=== PATIENT | male | born 1960 | race Caucasian/White ===

== ENCOUNTER 2016-05-21 11:34 | Emergency (ER) | payer OTHER ==
[~2016-05-21] VITALS: Ht 162.6 cm; Wt 63.5 kg
[~2016-05-21 11:34] MED LIST: BACT800T5 PO; DILA100C PO; PHEN100 PO
[2016-05-21 11:36] VITALS: BP 101/61; PULSE 76; RESP 15; TEMP 98.2; O2SAT 95
[2016-05-21 12:34] VITALS: O2SAT 95
[2016-05-21 12:50] LABS: AUTOMATED NEUTROPHIL # 2.9 TH/MM3 (1.8-7.7); BASOPHIL # 0.1 TH/MM3 (0-0.2); BASOPHIL % 1.3 % (0.0-2.0); EOSINOPHIL # 0.1 TH/MM3 (0-0.4); EOSINOPHIL % 1.6 % (0.0-4.0); HEMATOCRIT 38.3 % (39.0-51.0); HEMO FLAGS DIFF FINAL; LYMPH % 35.5 % (9.0-44.0); LYMPHOCYTE # 1.9 TH/MM3 (1.0-4.8); MEAN CELL VOLUME 95.3 FL (80.0-100.0); MEAN CORPUSCULAR HEMOGLOBIN 32.3 PG (27.0-34.0); MEAN CORPUSCULAR HGB CONC 33.9 % (32.0-36.0); MONO % 9.3 % (0.0-8.0); NEUT % 52.3 % (16.0-70.0); PLATELET COUNT 129 TH/MM3 (150-450); RED BLOOD COUNT 4.01 MIL/MM3 (4.50-5.90); RED CELL DISTRIBUTION WIDTH 14.8 % (11.6-17.2); WHITE BLOOD COUNT 5.5 TH/MM3 (4.0-11.0)
--- NOTE | 2016-05-21 12:51 | PD ---
HPI Chief Complaint: Head Injury Time Seen by Provider: 12:12 Travel History International Travel<30 days: No Contact w/Intl Traveler<30days: No Traveled to known affect area: No History of Present Illness HPI 55-year-old male complains of headache, neck pain, left hand pain, bilateral knee pain and body ache. Patient states that he fell down steps last night and hit the head. Patient is not sure of loss of consciousness. Patient states that he has subcutaneous headache all over the head. Patient denies any visual change. Patient complaining of neck pain. Patient denies any chest pain or shortness of breath. Patient denies abdominal pain. Patient states the had persistent nausea since last night. Patient denies any focal weakness or numbness of extremity. Patient states that he has pain all over the body but most on the left hand, bilateral knees. Patient has history of EtOH abuse. Patient drinks beers daily. Patient states that he drinks informed 64 packs daily. Patient states that he had 2 beers today. Patient states that he has extremity shakes today. Patient has history of DVT in the past. Patient also has history of diabetes and has not been taking diabetic medications. Patient denies any other illicit drug abuse. PFSH Past Medical History Arthritis: Yes Anxiety: Yes Depression: Yes Heart Rhythm Problems: No Cancer: No Cardiac Catheterization: Yes Cardiovascular Problems: Yes High Cholesterol: Yes Chemotherapy: No Congestive Heart Failure: No COPD: Yes Cerebrovascular Accident: Yes Coronary Artery Disease: Yes Diabetes: Yes Patient Takes Glucophage: No Diminished Hearing: No Endocrine: No Gastrointestinal Disorders: Yes (ulcerative colitis) Genitourinary: No Hypertension: Yes Immune Disorder: No Implanted Vascular Access Dvce: Yes Reproductive: No Respiratory: Yes Immunizations Current: No Myocardial Infarction: Yes (JULY 2014) Seizures: Yes Past Surgical History Body Medical Devices: PINS IN HAND, PIN AND PLATES IN HIP PER PATIENT Cardiac Surgery: Yes (2 stents) Coronary Artery Bypass Graft: No Coronary Stent: Yes Other Surgery: Yes (L HIP SURGERY) Social History Alcohol Use: Yes (4-6packs beer a day) Tobacco Use: Yes Substance Use: No Allergies-Medications (Allergen,Severity, Reaction): Coded Allergies: *MDRO Multi-Drug Resistant Organism (Verified Adverse Reaction, Unknown, ) MRSA leg wound 04/2015 MRSA PCR (nares) negative - 10/15/15 & 10/19/15 Cleared per Infection Control Morphine (Verified Adverse Reaction, Unknown, GI UPSET, 05/21/16) Reported Meds & Prescriptions Reported Meds & Active Scripts Active No Active Prescriptions or Reported Medications Review of Systems General / Constitutional: No: Fever Eyes: No: Visual changes HENT: Positive: Headaches, Neck Pain Cardiovascular: No: Chest Pain or Discomfort Respiratory: No: Shortness of Breath Gastrointestinal: No: Abdominal Pain Genitourinary: No: Dysuria Musculoskeletal: Positive: Pain Skin: No Rash Neurologic: No: Weakness Psychiatric: No: Depression Endocrine: No: Polydipsia Hematologic/Lymphatic: No: Easy Bruising Physical Exam Narrative GENERAL: Well-nourished, well-developed patient. SKIN: Warm and dry. HEAD: Normocephalic. Minor abrasion on the right temporal parietal area of the scalp. No active bleeding. EYES: No scleral icterus. No injection or drainage. Pupils 3 mm equal reactive. NECK: Supple, trachea midline. No JVD or lymphadenopathy. Mild tenderness on palpation paraspinal area of cervical spine. No midline tenderness. CARDIOVASCULAR: Regular rate and rhythm without murmurs, gallops, or rubs. RESPIRATORY: Breath sounds equal bilaterally. No accessory muscle use. GASTROINTESTINAL: Abdomen soft, non-tender, nondistended. MUSCULOSKELETAL: No cyanosis, or edema. Mild diffuse tenderness over the left hand, the fingers and also prepatellar area of both knees. Full range of motion all joints. BACK: Nontender without obvious deformity. No CVA tenderness. Neurologic exam: Patient is awake and alert oriented 3. No obvious focal neurological deficit. Data Data Last Documented VS Vital Signs Date Time Temp Pulse Resp B/P Pulse Ox O2 Delivery O2 Flow Rate FiO2 05/21/16 12:34 95 Room Air 05/21/16 11:36 98.2 76 15 101/61 Orders Complete Blood Count With Diff (05/21/16 12:18) Comprehensive Metabolic Panel (05/21/16 12:18) Prothrombin Time / Inr (Pt) (05/21/16 12:18) Act Partial Throm Time (Ptt) (05/21/16 12:18) Lipase (05/21/16 12:18) Alcohol (Ethanol) (05/21/16 12:18) Chest, Single Ap (05/21/16 12:18) Pelvis, Ap Only (Routine) (05/21/16 12:18) Iv Access Insert/Monitor (05/21/16 12:18) Ecg Monitoring (05/21/16 12:18) Oximetry (05/21/16 12:18) Ct Brain W/O Iv Contrast(Rout) (05/21/16 12:18) Ct Cerv Spine W/O Contrast (05/21/16 12:18) Hand, Complete ([id number]) (05/21/16 12:18) Knee, Ltd (1 Or 2vws) (05/21/16 12:18) Knee, Ltd (1 Or 2vws) (05/21/16 12:18) Labs Laboratory Tests Test 05/21/16 12:25 White Blood Count 5.5 TH/MM3 Red Blood Count 4.01 MIL/MM3 Hemoglobin 13.0 GM/DL Hematocrit 38.3 % Mean Corpuscular Volume 95.3 FL Mean Corpuscular Hemoglobin 32.3 PG Mean Corpuscular Hemoglobin 33.9 % Concent Red Cell Distribution Width 14.8 % Platelet Count 129 TH/MM3 Mean Platelet Volume 7.8 FL Neutrophils (%) (Auto) 52.3 % Lymphocytes (%) (Auto) 35.5 % Monocytes (%) (Auto) 9.3 % Eosinophils (%) (Auto) 1.6 % Basophils (%) (Auto) 1.3 % Neutrophils # (Auto) 2.9 TH/MM3 Lymphocytes # (Auto) 1.9 TH/MM3 Monocytes # (Auto) 0.5 TH/MM3 Eosinophils # (Auto) 0.1 TH/MM3 Basophils # (Auto) 0.1 TH/MM3 CBC Comment DIFF FINAL Differential Comment Prothrombin Time 10.7 SEC Prothromb Time International 1.0 RATIO Ratio Activated Partial 26.0 SEC Thromboplast Time Sodium Level 140 MEQ/L Potassium Level 3.9 MEQ/L Chloride Level 104 MEQ/L Carbon Dioxide Level 26.7 MEQ/L Anion Gap 9 MEQ/L Blood Urea Nitrogen 8 MG/DL Creatinine 0.85 MG/DL Estimat Glomerular Filtration 94 ML/MIN Rate Random Glucose 87 MG/DL Calcium Level 8.2 MG/DL Total Bilirubin 0.4 MG/DL Aspartate Amino Transf 96 U/L (AST/SGOT) Alanine Aminotransferase 105 U/L (ALT/SGPT) Alkaline Phosphatase 157 U/L Total Protein 7.8 GM/DL Albumin 3.9 GM/DL Lipase 452 U/L Ethyl Alcohol Level 298 MG/DL MDM Medical Decision Making Medical Screen Exam Complete: Yes Emergency Medical Condition: Yes Interpretation(s) [address] scan of the brain, cervical spine and extremity x-ray showed no acute bony injury. CBC within normal limit. Platelet 129. Calcium 8.2. AST 96. ALT 105. Alkaline phosphatase 157. Lipase 452. Alcohol 298. Differential Diagnosis Differential diagnosis including contusion, concussion, intracranial hemorrhage , neck injury,extremity contusion versus fracture. Narrative Course 55-year-old male with headache, neck pain, left hand pain, bilateral knee pain, status post without steps last night. History of EtOH abuse. Diagnosis Primary Impression: Closed head injury Qualified Code: S09.90XA - Closed head injury, initial encounter Additional Impressions: Multiple contusions Alcohol intoxication Patient Instructions: General Instructions Additional Instructions: Advil for pain. Head trauma instructions given. Follow up with [facility]. Med/Other Pt SpecificInfo: Prescription(s) given Scripts No Active Prescriptions or Reported Meds Disposition: 01 DISCHARGE HOME Condition: Stable Mayco Bravo MD May 21, 2016 12:51
[2016-05-21 12:59] LABS: PROTHROMBIN TIME - PATIENT 10.7 SEC (9.8-11.6)
[2016-05-21 13:06] LABS: ANION GAP 9 MEQ/L (5-15); AST (GOT) 96 U/L (15-37); BICARBONATE 26.7 MEQ/L (21.0-32.0); BLOOD UREA NITROGEN 8 MG/DL (7-18); CHLORIDE 104 MEQ/L (98-107); GLOMERULAR FILTRATION RATE 94 ML/MIN (>89); POTASSIUM 3.9 MEQ/L (3.5-5.1); SODIUM (NA) 140 MEQ/L (136-145)
--- NOTE | 2016-05-21 13:08 | RADRPT ---
EXAM DATE/TIME: 05/21/2016 12:44 [facility] COMPARISON: CHEST SINGLE AP, January 26, 2016, 20:00. INDICATIONS : Patient fell today and hit head on floor. Trauma to head. MEDICAL HISTORY : None. SURGICAL HISTORY : None. ENCOUNTER: Initial ACUITY: 1 day PAIN SCORE: 10/10 LOCATION: chest FINDINGS: A single view of the chest demonstrates the lungs to be symmetrically aerated without evidence of mas s, infiltrate or effusion. The cardiomediastinal contours are unremarkable. Osseous structures are intact. CONCLUSION: Normal examination. Saúl Love MD on May 21, 2016 at 13:07 Board Certified Radiologist. This report was verified electronically.
--- NOTE | 2016-05-21 13:09 | RADRPT ---
EXAM DATE/TIME: 05/21/2016 12:58 [facility] COMPARISON: CT BRAIN W/O CONTRAST, January 26, 2016, 20:58. INDICATIONS : Trauma; fell down stairs last night, headache. RADIATION DOSE: 43.29 CTDIvol (mGy) MEDICAL HISTORY : Stroke. Seizures. Hypertension. SURGICAL HISTORY : None. ENCOUNTER: Initial ACUITY: 1 day PAIN SCALE: 9/10 LOCATION: cranial TECHNIQUE: Multiple contiguous axial images were obtained of the head. Using automated exposure control and adj ustment of the mA and/or kV according to patient size, radiation dose was kept as low as reasonably a chievable to obtain optimal diagnostic quality images. FINDINGS: CEREBRUM: The ventricles are normal for age. No evidence of midline shift, mass lesion, hemorrhage or acute in farction. No extra-axial fluid collections are seen. POSTERIOR FOSSA: The cerebellum and brainstem are intact. The 4th ventricle is midline. The cerebellopontine angle i s unremarkable. EXTRACRANIAL: The visualized portion of the orbits is intact. SKULL: The calvaria is intact. No evidence of skull fracture. CONCLUSION: Normal examination. Saúl Love MD on May 21, 2016 at 13:08 Board Certified Radiologist. This report was verified electronically.
--- NOTE | 2016-05-21 13:11 | RADRPT ---
EXAM DATE/TIME: 05/21/2016 12:49 [facility] COMPARISON: No previous studies available for comparison. INDICATIONS : Patient fell today and hit head on floor. Trauma to head. MEDICAL HISTORY : None. SURGICAL HISTORY : None. ENCOUNTER: Initial ACUITY: 1 day PAIN SCORE: 10/10 LOCATION: pelvis FINDINGS: A single frontal view of the pelvis demonstrates no evidence of fracture. The bony pelvic ring is in tact. Bony mineralization is normal. The soft tissues are intact. CONCLUSION: Unremarkable examination of the pelvis. Saúl Love MD on May 21, 2016 at 13:09 Board Certified Radiologist. This report was verified electronically.
--- NOTE | 2016-05-21 13:19 | RADRPT ---
EXAM DATE/TIME: 05/21/2016 12:51 [facility] COMPARISON: No previous studies available for comparison. INDICATIONS : Patient fell today and hit head on floor. Trauma to head. MEDICAL HISTORY : None. SURGICAL HISTORY : None. ENCOUNTER: Initial ACUITY: 1 day PAIN SCORE: 10/10 LOCATION: Left Knee FINDINGS: Two view examination of the left knee demonstrates no evidence of fracture or dislocation. Bony mine ralization is normal. The suprapatellar soft tissues have a normal configuration. CONCLUSION: Unremarkable limited examination of the left knee. Saúl Love MD on May 21, 2016 at 13:18 Board Certified Radiologist. This report was verified electronically.
--- NOTE | 2016-05-21 13:19 | RADRPT ---
EXAM DATE/TIME: 05/21/2016 12:52 [facility] COMPARISON: No previous studies available for comparison. INDICATIONS : Patient fell today and hit head on floor. Trauma to head. MEDICAL HISTORY : None. SURGICAL HISTORY : None. ENCOUNTER: Initial ACUITY: 1 day PAIN SCORE: 10/10 LOCATION: Right Knee FINDINGS: Two view examination of the right knee demonstrates no evidence of fracture or dislocation. Bony min eralization is normal. The suprapatellar soft tissues have a normal configuration. CONCLUSION: Unremarkable limited examination of the right knee. Saúl Love MD on May 21, 2016 at 13:18 Board Certified Radiologist. This report was verified electronically.
[2016-05-21 13:22] LABS: ALKALINE PHOSPHATASE 157 U/L (45-117); ALT (GPT) 105 U/L (12-78); TOTAL BILIRUBIN ADULT 0.4 MG/DL (0.2-1.0)
--- NOTE | 2016-05-21 13:27 | RADRPT ---
EXAM DATE/TIME: 05/21/2016 12:58 [facility] COMPARISON: No previous studies available for comparison. INDICATIONS : Trauma; fell down stairs last night. RADIATION DOSE: 21.30 CTDIvol (mGy) MEDICAL HISTORY : Stroke. Seizures. Hypertension. SURGICAL HISTORY : None. ENCOUNTER: Initial ACUITY: 1 day PAIN SCALE: 3/10 LOCATION: Bilateral neck TECHNIQUE: Volumetric scanning of the cervical spine was performed. Multiplanar reconstructions in the sagittal, coronal and oblique axial planes were performed. Using automated exposure control and adjustment o f the mA and/or kV according to patient size, radiation dose was kept as low as reasonably achievable to obtain optimal diagnostic quality images. FINDINGS: VERTEBRAE: Normal vertebral body height. ALIGNMENT: No evidence of subluxation. C2-C3: The bony spinal canal is normal in size. No evidence of disc bulge or herniation. The neural forami na are bilaterally patent. C3-C4: The bony spinal canal is normal in size. No evidence of disc bulge or herniation. The neural forami na are bilaterally patent. C4-C5: The bony spinal canal is normal in size. No evidence of disc bulge or herniation. The neural forami na are bilaterally patent. C5-C6: The bony spinal canal is normal in size. No evidence of disc bulge or herniation. The neural forami na are bilaterally patent. C6-C7: The bony spinal canal is normal in size. No evidence of disc bulge or herniation. The neural forami na are bilaterally patent. C7-T1: The bony spinal canal is normal in size. No evidence of disc bulge or herniation. The neural forami na are bilaterally patent. CONCLUSION: Normal examination. Saúl Love MD on May 21, 2016 at 13:25 Board Certified Radiologist. This report was verified electronically.
--- NOTE | 2016-05-21 13:31 | RADRPT ---
EXAM DATE/TIME: 05/21/2016 12:46 [facility] COMPARISON: No previous studies available for comparison. INDICATIONS : Patient fell today and hit head on floor. Trauma to head. MEDICAL HISTORY : None. SURGICAL HISTORY : Proximal 1st digit ORIF. ENCOUNTER: Initial ACUITY: 1 day PAIN SCORE: 10/10 LOCATION: Left hand FINDINGS: Three view examination of the left hand demonstrates the patient's previous first metacarpal fracture has been fixated. The carpal bones are preserved. No volar plate or dorsal plate fracture is ident ified. CONCLUSION: First metacarpal has been fixated. No acute fracture is seen. Saúl Love MD on May 21, 2016 at 13:09 Board Certified Radiologist. This report was verified electronically.
[2016-06-05] MEDS ORDERED: DILA100C PO ×2 (17:46→18:45)
== END 2016-05-21 16:10 | disposition home or self-care (01) ==
LOC: NEPA 11:34
DX: S09.90XA Unspecified injury of head, initial encounter (principal); F10.129 Alcohol abuse with intoxication, unspecified; M54.2 Cervicalgia; M25.561 Pain in right knee; M25.562 Pain in left knee; M79.642 Pain in left hand; E78.00 Pure hypercholesterolemia, unspecified; J44.9 Chronic obstructive pulmonary disease, unspecified; E11.9 Type 2 diabetes mellitus without complications; I10 Essential (primary) hypertension; W10.9XXA Fall (on) (from) unspecified stairs and steps, initial encounter
CPT/HCPCS: 70450; 71010; 72125; 72170; 73130; 73560; 80053; 80320; 83690; 85025; 85610; 85730

== ENCOUNTER 2016-06-23 18:10 | Emergency (ER) | payer OTHER ==
[~2016-06-23 18:10] MED LIST changes: -BACT800T5 PO; -PHEN100 PO
[2016-06-23 20:10] VITALS: BP 170/72; PULSE 77; RESP 18; TEMP 98.2; O2SAT 95
[2016-06-23 21:10] LABS: AMPHETAMINE, URINE NEG (NEG); BARBITURATES, URINE NEG (NEG); COCAINE, URINE NEG (NEG)
--- NOTE | 2016-06-23 21:21 | PD ---
HPI Chief Complaint: Psychiatric Symptoms Time Seen by Provider: 21:21 Travel History International Travel<30 days: No Contact w/Intl Traveler<30days: No Traveled to known affect area: No History of Present Illness HPI 55-year-old male presents to emergency department under Cordero act for psychiatric evaluation. Patient states that he is tired of living how he is and just wants to be gone. Patient states he would rather not discuss a plan. Reports alcohol consumption. Denies any other illicit drug use. Has no acute medical needs. No other symptoms to report. PFSH Past Medical History Arthritis: Yes Anxiety: Yes Depression: Yes Heart Rhythm Problems: No Cancer: No Cardiac Catheterization: Yes Cardiovascular Problems: Yes High Cholesterol: Yes Chemotherapy: No Congestive Heart Failure: No COPD: Yes Cerebrovascular Accident: Yes Coronary Artery Disease: Yes Diabetes: Yes Diminished Hearing: No Endocrine: No Gastrointestinal Disorders: Yes (ulcerative colitis) Genitourinary: No Heparin Induced Thrombocytopen: No Hypertension: Yes Immune Disorder: No Implanted Vascular Access Dvce: Yes Reproductive: No Respiratory: Yes Immunizations Current: No Myocardial Infarction: Yes (JULY 2014) Seizures: Yes Past Surgical History Body Medical Devices: PINS IN HAND, PIN AND PLATES IN HIP PER PATIENT Cardiac Surgery: Yes (2 stents) Coronary Artery Bypass Graft: No Coronary Stent: Yes Other Surgery: Yes (L HIP SURGERY) Social History Alcohol Use: Yes (8-16 oz beers/day) Tobacco Use: Yes (2 ppd) Substance Use: Yes (ALCOHOL ABUSE) Allergies-Medications (Allergen,Severity, Reaction): Coded Allergies: *MDRO Multi-Drug Resistant Organism (Verified Adverse Reaction, Unknown, ) MRSA leg wound 04/2015 MRSA PCR (nares) negative - 10/15/15 & 10/19/15 Cleared per Infection Control Morphine (Verified Adverse Reaction, Unknown, GI UPSET, 06/05/16) Reported Meds & Prescriptions Reported Meds & Active Scripts Active Reported Dilantin (Phenytoin Extended) 100 Mg Cap 100 Mg PO TID Review of Systems ROS Limitations: Intoxication Except as stated in HPI: all other systems reviewed are Neg Physical Exam Exam Limitations: Intoxication Narrative GENERAL: Well-nourished, well-developed male patient, in no acute distress SKIN: Warm and dry. HEAD: Normocephalic. Atraumatic EYES: No scleral icterus. No injection or drainage. NECK: Supple, trachea midline. No JVD or lymphadenopathy. CARDIOVASCULAR: Regular rate and rhythm without murmurs, gallops, or rubs. RESPIRATORY: Breath sounds equal bilaterally. No accessory muscle use. GASTROINTESTINAL: Abdomen soft, non-tender, nondistended. MUSCULOSKELETAL: No cyanosis, or edema. BACK: Nontender without obvious deformity. No CVA tenderness. Data Data Last Documented VS Vital Signs Date Time Temp Pulse Resp B/P Pulse Ox O2 Delivery O2 Flow Rate FiO2 06/24/16 02:15 88 18 106/57 95 Room Air 06/23/16 20:10 98.2 Orders Complete Blood Count With Diff (06/23/16 20:24) Basic Metabolic Panel (Bmp) (06/23/16 20:24) Psych Screen (06/23/16 20:24) Drug Screen, Random Urine (06/23/16 20:24) Alcohol (Ethanol) (06/23/16 20:24) Diet Regular Basic (06/24/16 Breakfast) Phenytoin (Dilantin) (06/24/16 01:30) Labs Laboratory Tests Test 06/23/16 06/23/16 20:05 20:45 Urine Opiates Screen NEG Urine Barbiturates Screen NEG Urine Amphetamines Screen NEG Urine Benzodiazepines Screen NEG Urine Cocaine Screen NEG Urine Cannabinoids Screen NEG White Blood Count 4.1 TH/MM3 Red Blood Count 3.87 MIL/MM3 Hemoglobin 13.1 GM/DL Hematocrit 37.5 % Mean Corpuscular Volume 96.8 FL Mean Corpuscular Hemoglobin 33.9 PG Mean Corpuscular Hemoglobin 35.0 % Concent Red Cell Distribution Width 13.6 % Platelet Count 80 TH/MM3 Mean Platelet Volume 8.2 FL Neutrophils (%) (Auto) 35.7 % Lymphocytes (%) (Auto) 49.2 % Monocytes (%) (Auto) 10.2 % Eosinophils (%) (Auto) 4.0 % Basophils (%) (Auto) 0.9 % Neutrophils # (Auto) 1.4 TH/MM3 Lymphocytes # (Auto) 2.0 TH/MM3 Monocytes # (Auto) 0.4 TH/MM3 Eosinophils # (Auto) 0.2 TH/MM3 Basophils # (Auto) 0.0 TH/MM3 CBC Comment AUTO DIFF Differential Comment AUTO DIFF CONFIRMED Platelet Estimate LOW Platelet Morphology Comment NORMAL Sodium Level 138 MEQ/L Potassium Level 3.6 MEQ/L Chloride Level 101 MEQ/L Carbon Dioxide Level 25.3 MEQ/L Anion Gap 12 MEQ/L Blood Urea Nitrogen 6 MG/DL Creatinine 0.72 MG/DL Estimat Glomerular Filtration 114 ML/MIN Rate Random Glucose 110 MG/DL Calcium Level 8.0 MG/DL Ethyl Alcohol Level 398 MG/DL MDM Medical Decision Making Medical Screen Exam Complete: Yes Emergency Medical Condition: Yes Medical Record Reviewed: Yes Differential Diagnosis Mood disorder versus personality disorder versus adjustment reaction disorder versus alcoholism versus substance abuse Narrative Course 55-year-old male presents to the emergency department under Cordero act for psychiatric evaluation. Patient is without distress. CBC and BMP are without acute concern. EtOH is 368. Patient is medically cleared to undergo psychiatric screening for further evaluation and disposition. Mental health screening discussed with the patient. Psychiatric screen ordered. Diagnosis Primary Impression: Alcohol intoxication Qualified Code: F10.120 - Alcohol intoxication, uncomplicated Additional Impression: Mood disorder Condition: Stable Tiffanie Marshall Jun 23, 2016 21:21
[2016-06-23 21:23] LABS: AUTOMATED NEUTROPHIL # 1.4 TH/MM3 (1.8-7.7); BASOPHIL % 0.9 % (0.0-2.0); EOSINOPHIL # 0.2 TH/MM3 (0-0.4); HEMATOCRIT 37.5 % (39.0-51.0); LYMPH % 49.2 % (9.0-44.0); MEAN CELL VOLUME 96.8 FL (80.0-100.0); MEAN CORPUSCULAR HEMOGLOBIN 33.9 PG (27.0-34.0); MONO % 10.2 % (0.0-8.0); NEUT % 35.7 % (16.0-70.0); PLATELET COUNT 80 TH/MM3 (150-450); RED BLOOD COUNT 3.87 MIL/MM3 (4.50-5.90); RED CELL DISTRIBUTION WIDTH 13.6 % (11.6-17.2); WHITE BLOOD COUNT 4.1 TH/MM3 (4.0-11.0)
[2016-06-23 21:26] LABS: HEMO FLAGS AUTO DIFF
[2016-06-23 21:47] LABS: BICARBONATE 25.3 MEQ/L (21.0-32.0); POTASSIUM 3.6 MEQ/L (3.5-5.1)
[2016-06-23 22:05] LABS: PLATELET ESTIMATE SMEAR LOW (NORMAL); PLATELET MORPHOLOGY NORMAL (NORMAL); SCAN/DIFF AUTO DIFF CONFIRMED
[2016-06-23 22:16] VITALS: BP 102/58; PULSE 89; RESP 20; O2SAT 95
[2016-06-24] MEDS ORDERED: PHENYTOIN SODIUM 100 MG CAP PO ONE ×2 (01:30→12:15)
[2016-06-24 02:15] VITALS: BP 106/57; PULSE 88; RESP 18; O2SAT 95
[2016-06-24 06:06] VITALS: BP 123/63; PULSE 93; RESP 17; O2SAT 94
[2016-06-24] MEDS ORDERED: FLUMAZENIL 0.5 MG/5 ML VIAL IV PUSH PRN (07:45)
[2016-06-24] MEDS ORDERED: LORazepam 2 MG/ML VIAL IV PUSH PRN ×4 (07:45)
[2016-06-24] MEDS ORDERED: LORazepam 2 MG/ML VIAL IM ONE (07:45)
[2016-06-24] MEDS: LORazepam 2 MG TAB PO PRN ×3 (07:50→16:06)
[2016-06-24 08:00] VITALS: BP 150/89; PULSE 85; RESP 20; TEMP 98.3; O2SAT 97
[2016-06-24 10:30] VITALS: BP 136/78; PULSE 86; RESP 18
[2016-06-24 14:00] VITALS: BP 152/90; PULSE 72; RESP 18; O2SAT 97
[2016-06-24] MEDS: LORazepam 1 MG TAB PO PRN (19:17)
[2016-06-24 22:27] VITALS: BP 142/82; PULSE 70; RESP 17; O2SAT 97
[2016-06-25] MEDS: LORazepam 1 MG TAB PO PRN ×2 (00:07→06:30)
[2016-06-25 02:19] VITALS: BP 173/83; PULSE 55; RESP 18; TEMP 97.1; O2SAT 99
[2016-06-25] MEDS: LORazepam 2 MG TAB PO PRN (04:22)
[2016-06-25 06:08] VITALS: BP 164/60; PULSE 70; RESP 18; TEMP 97.2; O2SAT 97
== END 2016-06-25 09:25 ==
LOC: NEPJ 18:10
DX: F10.120 Alcohol abuse with intoxication, uncomplicated (principal); F39 Unspecified mood [affective] disorder; E11.9 Type 2 diabetes mellitus without complications; I10 Essential (primary) hypertension; E78.00 Pure hypercholesterolemia, unspecified; I25.2 Old myocardial infarction; F17.200 Nicotine dependence, unspecified, uncomplicated; Z87.39 Personal history of other diseases of the musculoskeletal system and connective tissue; Z86.79 Personal history of other diseases of the circulatory system; Z86.59 Personal history of other mental and behavioral disorders; Z86.69 Personal history of other diseases of the nervous system and sense organs; Z87.09 Personal history of other diseases of the respiratory system; Z87.19 Personal history of other diseases of the digestive system; Z86.73 Personal history of transient ischemic attack (TIA), and cerebral infarction without residual deficits
CPT/HCPCS: 80048; 80307; 80320; 85025; 99285

== ENCOUNTER 2016-08-22 18:32 | Emergency (ER) | payer OTHER ==
[~2016-08-22] VITALS: Ht 172.7 cm; Wt 70.0 kg
[2016-08-22 18:50] VITALS: BP 111/64; PULSE 88; RESP 16; TEMP 98.2; O2SAT 96
[2016-08-22 19:08] LABS: AUTOMATED NEUTROPHIL # 1.5 TH/MM3 (1.8-7.7); EOSINOPHIL # 0.1 TH/MM3 (0-0.4); EOSINOPHIL % 2.5 % (0.0-4.0); HEMATOCRIT 37.8 % (39.0-51.0); HEMO FLAGS DIFF FINAL; LYMPH % 50.7 % (9.0-44.0); LYMPHOCYTE # 2.2 TH/MM3 (1.0-4.8); MEAN CELL VOLUME 94.6 FL (80.0-100.0); MEAN CORPUSCULAR HGB CONC 34.9 % (32.0-36.0); MONO % 12.7 % (0.0-8.0); NEUT % 33.1 % (16.0-70.0); PLATELET COUNT 144 TH/MM3 (150-450); RED CELL DISTRIBUTION WIDTH 13.4 % (11.6-17.2); WHITE BLOOD COUNT 4.4 TH/MM3 (4.0-11.0)
[2016-08-22 19:18] LABS: AMPHETAMINE, URINE NEG (NEG); BARBITURATES, URINE NEG (NEG); COCAINE, URINE NEG (NEG)
[2016-08-22 19:31] LABS: ANION GAP 11 MEQ/L (5-15); AST (GOT) 87 U/L (15-37); BICARBONATE 24.5 MEQ/L (21.0-32.0); BLOOD UREA NITROGEN 6 MG/DL (7-18); CHLORIDE 107 MEQ/L (98-107); GLOMERULAR FILTRATION RATE 110 ML/MIN (>89); POTASSIUM 3.9 MEQ/L (3.5-5.1); SODIUM (NA) 142 MEQ/L (136-145)
[2016-08-22 19:34] LABS: ALKALINE PHOSPHATASE 137 U/L (45-117); ALT (GPT) 105 U/L (12-78); TOTAL BILIRUBIN ADULT 0.2 MG/DL (0.2-1.0)
--- NOTE | 2016-08-22 19:57 | PD ---
HPI Chief Complaint: Psychiatric Symptoms Time Seen by Provider: 19:55 Travel History International Travel<30 days: No Contact w/Intl Traveler<30days: No Traveled to known affect area: No History of Present Illness HPI Patient comes in under Cordero act by police for allegedly making suicidal statements. Patient denies any homicidal or suicidal ideations. Patient denies any medical concerns at this time. Denies any chest pain, shortness of breath, nausea vomiting, abdominal pain, or fevers. PFSH Past Medical History Arthritis: Yes Anxiety: Yes Depression: Yes Heart Rhythm Problems: No Cancer: No Cardiac Catheterization: Yes Cardiovascular Problems: Yes High Cholesterol: Yes Chemotherapy: No Congestive Heart Failure: No Cirrhosis: Yes COPD: Yes Cerebrovascular Accident: Yes Coronary Artery Disease: Yes Diabetes: No Diminished Hearing: No Endocrine: No Gastrointestinal Disorders: Yes (ulcerative colitis) Genitourinary: No Heparin Induced Thrombocytopen: No Hypertension: Yes Immune Disorder: No Implanted Vascular Access Dvce: Yes Reproductive: No Respiratory: Yes Immunizations Current: No Myocardial Infarction: Yes (JULY 2014) Seizures: Yes Tetanus Vaccination: Unknown Past Surgical History Body Medical Devices: PINS IN HAND, PIN AND PLATES IN HIP PER PATIENT Cardiac Surgery: Yes (2 stents) Coronary Artery Bypass Graft: No Coronary Stent: Yes Other Surgery: Yes (lt hip, rt hand, lt hand) Social History Alcohol Use: Yes (12ppd) Tobacco Use: Yes (2ppd) Substance Use: No Allergies-Medications (Allergen,Severity, Reaction): Coded Allergies: *MDRO Multi-Drug Resistant Organism (Verified Adverse Reaction, Unknown, ) MRSA leg wound 04/2015 MRSA PCR (nares) negative - 10/15/15 & 10/19/15 Cleared per Infection Control Morphine (Verified Adverse Reaction, Unknown, GI UPSET, 06/05/16) Reported Meds & Prescriptions Reported Meds & Active Scripts Active Reported Dilantin (Phenytoin Extended) 100 Mg Cap 100 Mg PO TID Review of Systems Except as stated in HPI: all other systems reviewed are Neg Physical Exam Narrative GENERAL: Well-developed, well nourished, in no acute distress, and non-ill appearing. SKIN: Focused skin assessment warm and dry. HEAD: Atraumatic. Normocephalic. EYES: Pupils equal and round. EOMI. No scleral icterus. No injection or drainage. ENT: No nasal bleeding or discharge. Mucous membranes pink and moist. NECK: Trachea midline. Supple. No nuclear rigidity. CARDIOVASCULAR: Regular rate and rhythm. No murmur appreciated. RESPIRATORY: No accessory muscle use. No respiratory distress. Clear to auscultation. Breath sounds equal bilaterally. GASTROINTESTINAL: Abdomen soft, non-tender, nondistended. Hepatic and splenic margins not palpable. Normal bowel sounds 4. No pulsatile mass. MUSCULOSKELETAL: No obvious deformities. No clubbing. No cyanosis. No edema. Full range of motion. NEUROLOGICAL: Awake and alert. No obvious cranial nerve deficits. Motor grossly within normal limits. Normal speech. PSYCHIATRIC: Appropriate mood and affect; insight and judgment normal. Data Data Last Documented VS Vital Signs Date Time Temp Pulse Resp B/P Pulse Ox O2 Delivery O2 Flow Rate FiO2 08/22/16 18:50 98.2 88 16 111/64 96 Orders Complete Blood Count With Diff (08/22/16 18:52) Comprehensive Metabolic Panel (08/22/16 18:52) Psych Screen (08/22/16 18:52) Drug Screen, Random Urine (08/22/16 18:52) Alcohol (Ethanol) (08/22/16 19:38) Labs Laboratory Tests Test 08/22/16 18:53 White Blood Count 4.4 TH/MM3 Red Blood Count 4.00 MIL/MM3 Hemoglobin 13.2 GM/DL Hematocrit 37.8 % Mean Corpuscular Volume 94.6 FL Mean Corpuscular Hemoglobin 33.0 PG Mean Corpuscular Hemoglobin 34.9 % Concent Red Cell Distribution Width 13.4 % Platelet Count 144 TH/MM3 Mean Platelet Volume 7.1 FL Neutrophils (%) (Auto) 33.1 % Lymphocytes (%) (Auto) 50.7 % Monocytes (%) (Auto) 12.7 % Eosinophils (%) (Auto) 2.5 % Basophils (%) (Auto) 1.0 % Neutrophils # (Auto) 1.5 TH/MM3 Lymphocytes # (Auto) 2.2 TH/MM3 Monocytes # (Auto) 0.6 TH/MM3 Eosinophils # (Auto) 0.1 TH/MM3 Basophils # (Auto) 0.0 TH/MM3 CBC Comment DIFF FINAL Differential Comment Sodium Level 142 MEQ/L Potassium Level 3.9 MEQ/L Chloride Level 107 MEQ/L Carbon Dioxide Level 24.5 MEQ/L Anion Gap 11 MEQ/L Blood Urea Nitrogen 6 MG/DL Creatinine 0.74 MG/DL Estimat Glomerular Filtration 110 ML/MIN Rate Random Glucose 95 MG/DL Calcium Level 8.5 MG/DL Total Bilirubin 0.2 MG/DL Aspartate Amino Transf 87 U/L (AST/SGOT) Alanine Aminotransferase 105 U/L (ALT/SGPT) Alkaline Phosphatase 137 U/L Total Protein 7.9 GM/DL Albumin 4.2 GM/DL Urine Opiates Screen NEG Urine Barbiturates Screen NEG Urine Amphetamines Screen NEG Urine Benzodiazepines Screen NEG Urine Cocaine Screen NEG Urine Cannabinoids Screen NEG MDM Medical Decision Making Medical Screen Exam Complete: Yes Emergency Medical Condition: Yes Differential Diagnosis Homicidal, suicidal, alcohol intoxication, alcohol dependence, other Narrative Course Patient was seen and examined. Labs were obtained and reviewed. Patient medically cleared for further treatment and evaluation by psych. Final disposition per psych. Diagnosis Primary Impression: Medical clearance for psychiatric admission Condition: Stable Vineet Abel Aug 22, 2016 19:57
[2016-08-22 20:23] VITALS: BP 129/66; PULSE 74; RESP 18; O2SAT 98
[2016-08-22] MEDS ORDERED: LORazepam 2 MG/ML VIAL IV PUSH PRN ×4 (20:45)
[2016-08-22] MEDS ORDERED: LORazepam 2 MG TAB PO PRN (20:45)
[2016-08-22] MEDS ORDERED: FLUMAZENIL 0.5 MG/5 ML VIAL IV PUSH PRN (20:45)
[2016-08-22 22:11] VITALS: BP 102/54; PULSE 89; RESP 19; O2SAT 97
[2016-08-22] MEDS: LORazepam 1 MG TAB PO PRN (22:54)
[2016-08-23 02:14] VITALS: BP 128/69; PULSE 62; RESP 19; O2SAT 95
[2016-08-23 06:20] VITALS: BP 138/66; PULSE 87; RESP 19; O2SAT 98
[2016-08-23] MEDS: LORazepam 1 MG TAB PO PRN ×2 (06:47→11:10)
[2016-08-23 12:18] VITALS: BP 139/83; PULSE 79; RESP 18; O2SAT 97
--- NOTE | 2016-08-23 13:22 | PD ---
History of Present Illness Chief Complaint: Psychiatric Symptoms Time Seen by Provider: 13:15 Travel History International Travel<30 Days: No Contact w/Intl Traveler<30days: No Known affected area: No Legal Status Legal Status: Cordero Act Cordero Act Signed By: Gianluca Cordero Act Comment: 08/22/2016 6:17 PM [facility] History of Present Illness: This is a 55-year-old male with a multiyear history of alcoholism who presented to the emergency department with an alcohol level greater than 400. He apparently made suicidal remarks when he first presented. At this time he is no longer intoxicated and he is not suicidal. He is currently calm but feeling somewhat anxious and tremulous from not drinking for several hours. He was given 1 mg of Ativan by the nurse, Joesph. He was also fat lunch and he is hungry. The patient is sometimes homeless and has been drinking significant quantities of booze on a regular basis. There are times he admits that he is making suicidal threats but verbally agreed that he would not do that at this time, understanding that it was manipulative. This physician also discussed the fact that he needs to stop drinking alcohol and that to give into his manipulations would be counter therapeutic. Therefore his Cordero act was lifted and he is being discharged home. PFSH Past Medical History Arthritis: Yes Anxiety: Yes Depression: Yes Heart Rhythm Problems: No Cancer: No Cardiac Catheterization: Yes Cardiovascular Problems: Yes High Cholesterol: Yes Chemotherapy: No Congestive Heart Failure: No Cirrhosis: Yes COPD: Yes Cerebrovascular Accident: Yes Coronary Artery Disease: Yes Diabetes: No Diminished Hearing: No Endocrine: No Gastrointestinal Disorders: Yes (ulcerative colitis) Genitourinary: No Heparin Induced Thrombocytopen: No Hypertension: Yes Immune Disorder: No Implanted Vascular Access Dvce: Yes Reproductive: No Respiratory: Yes Immunizations Current: No Myocardial Infarction: Yes (JULY 2014) Seizures: Yes Tetanus Vaccination: Unknown Past Surgical History Body Medical Devices: PINS IN HAND, PIN AND PLATES IN HIP PER PATIENT Cardiac Surgery: Yes (2 stents) Coronary Artery Bypass Graft: No Coronary Stent: Yes Other Surgery: Yes (lt hip, rt hand, lt hand) Psychiatric History Psychiatric History Hx Psychiatric Treatment: HX OF DEPRESSION. NO KNOWN HX OF INPATIENT PSYCH ADMISSIONS. History of Inpatient Treatment: No Guns or firearms in home: No Social History Hx Alcohol Use: Yes (12ppd) Hx Tobacco Use: Yes (2ppd) Hx Substance Use: Yes Substance Use Type: Alcohol, Nicotine/Cigarettes Other Substances Used: 2 ppd Hx of Substance Use Treatment: Yes Allergies-Medications (Allergen,Severity, Reaction): Coded Allergies: *MDRO Multi-Drug Resistant Organism (Verified Adverse Reaction, Unknown, ) MRSA leg wound 04/2015 MRSA PCR (nares) negative - 10/15/15 & 10/19/15 Cleared per Infection Control Morphine (Verified Adverse Reaction, Unknown, GI UPSET, 06/05/16) Reported Meds & Prescriptions Reported Meds & Active Scripts Active Reported Dilantin (Phenytoin Extended) 100 Mg Cap 100 Mg PO TID Review of Systems ROS Limitations: Clinical Condition Except as stated in HPI: all other systems reviewed are Neg Exam Alert: Yes Onward: Person, Place, Date, Situation Mood: Calm Affect: Restricted Speech: Clear, Logical Eye Contact: Normal Memory Intact: Immediate, Recent, Remote Insight/Judgement Adequate except when it comes to alcohol abuse. MDM Medical Decision Making Medical Record Reviewed: Yes Assessment/Plan Patient Consuelo acted being lifted because he does not qualify for a Cordero act based on his alcohol abuse and intoxication. He also does not qualify for inpatient psychiatric hospitalization as this facility is not license for detox and rehabilitation. Finally, it is counter therapeutic to admit him if he does threaten suicide as his primary problem remains alcohol. Orders Complete Blood Count With Diff (08/22/16 18:52) Comprehensive Metabolic Panel (08/22/16 18:52) Psych Screen (08/22/16 18:52) Drug Screen, Random Urine (08/22/16 18:52) Alcohol (Ethanol) (08/22/16 19:38) Alcohol Withdrawal Asmt-Ciwa ONCE (08/22/16 20:31) Flumazenil Inj (Romazicon Inj) (08/22/16 20:45) Lorazepam (Ativan) (08/22/16 20:45) Lorazepam Inj (Ativan Inj) (08/22/16 20:45) Lorazepam (Ativan) (08/22/16 20:45) Lorazepam Inj (Ativan Inj) (08/22/16 20:45) Lorazepam Inj (Ativan Inj) (08/22/16 20:45) Lorazepam Inj (Ativan Inj) (08/22/16 20:45) Diet Regular Basic (08/23/16 Breakfast) Diet Regular Basic (08/23/16 Lunch) Results Vital Signs Date Time Temp Pulse Resp B/P Pulse Ox O2 Delivery O2 Flow Rate FiO2 08/23/16 12:18 79 18 139/83 97 Room Air 08/23/16 06:20 87 19 138/66 98 Room Air 08/23/16 02:14 62 19 128/69 95 Room Air 08/22/16 22:55 18 08/22/16 22:11 89 19 102/54 97 Room Air 08/22/16 20:23 74 18 129/66 98 Room Air 08/22/16 18:50 98.2 88 16 111/64 96 Laboratory Tests Test 08/22/16 18:53 White Blood Count 4.4 Red Blood Count 4.00 Hemoglobin 13.2 Hematocrit 37.8 Mean Corpuscular Volume 94.6 Mean Corpuscular Hemoglobin 33.0 Mean Corpuscular Hemoglobin 34.9 Concent Red Cell Distribution Width 13.4 Platelet Count 144 Mean Platelet Volume 7.1 Neutrophils (%) (Auto) 33.1 Lymphocytes (%) (Auto) 50.7 Monocytes (%) (Auto) 12.7 Eosinophils (%) (Auto) 2.5 Basophils (%) (Auto) 1.0 Neutrophils # (Auto) 1.5 Lymphocytes # (Auto) 2.2 Monocytes # (Auto) 0.6 Eosinophils # (Auto) 0.1 Basophils # (Auto) 0.0 CBC Comment DIFF FINAL Differential Comment Sodium Level 142 Potassium Level 3.9 Chloride Level 107 Carbon Dioxide Level 24.5 Anion Gap 11 Blood Urea Nitrogen 6 Creatinine 0.74 Estimat Glomerular Filtration 110 Rate Random Glucose 95 Calcium Level 8.5 Total Bilirubin 0.2 Aspartate Amino Transf 87 (AST/SGOT) Alanine Aminotransferase 105 (ALT/SGPT) Alkaline Phosphatase 137 Total Protein 7.9 Albumin 4.2 Urine Opiates Screen NEG Urine Barbiturates Screen NEG Urine Amphetamines Screen NEG Urine Benzodiazepines Screen NEG Urine Cocaine Screen NEG Urine Cannabinoids Screen NEG Ethyl Alcohol Level 407 Diagnosis Primary Impression: Alcohol abuse Condition: Stable Jose Blank MD Aug 23, 2016 13:22
[2016-08-23 13:54] VITALS: BP 139/83; PULSE 79; RESP 18; O2SAT 97
== END 2016-08-23 14:29 | disposition home or self-care (01) ==
LOC: NEDAMB 18:32 → NEPJ 08-23 14:29
DX: F10.10 Alcohol abuse, uncomplicated (principal); F32.9 Major depressive disorder, single episode, unspecified; E78.00 Pure hypercholesterolemia, unspecified; J44.9 Chronic obstructive pulmonary disease, unspecified; Z86.73 Personal history of transient ischemic attack (TIA), and cerebral infarction without residual deficits; I10 Essential (primary) hypertension; I25.2 Old myocardial infarction; F17.200 Nicotine dependence, unspecified, uncomplicated
CPT/HCPCS: 80053; 80307; 85025; 96372; 99285; J2060

== ENCOUNTER 2016-09-19 11:20 | Emergency (ER) | payer OTHER ==
[2016-09-19 11:33] VITALS: BP 103/65; PULSE 68; RESP 20; TEMP 97; O2SAT 96
--- NOTE | 2016-09-19 12:00 | PD ---
Physical Exam Date Seen by Provider: September 19, 2016 Time Seen by Provider: 11:55 Narrative 55 y/o male with increasing pain in right lower quadrant for the past 3 days. Patient has had difficulty urinating, and Stool reportedly Green. Patient states worsening Nausea and Vomiting. Hx Ulcerative Colitis. Still has Appendix. Hx Cardiac Stent. Hx Untreated Type 2 DM. No Fever. Pain 9/10. Denies Abdominal bulging. Allergic to Morphine. V/S Stable Awaiting Bed Placement. Data Data Last Documented VS Vital Signs Date Time Temp Pulse Resp B/P Pulse Ox O2 Delivery O2 Flow Rate FiO2 09/19/16 11:33 97.0 68 20 103/65 96 Room Air [facility] Medical Record Reviewed: Yes Supervised Visit with SERG: Yes Condition: Stable Jun Jacob September 19, 2016 12:00
[2016-09-19] MEDS ORDERED: SODIUM CHLOR 0.9% 1000 ML INJ 1,000 ML IV SCH (13:53)
[2016-09-19] MEDS ORDERED: LORazepam 2 MG/ML VIAL IV PUSH PRN ×4 (14:00)
[2016-09-19] MEDS ORDERED: SODIUM CHLORIDE 0.9% FLUSH 10 ML FLUSH IV FLUSH PRN (14:00)
[2016-09-19] MEDS ORDERED: LORazepam 2 MG TAB PO PRN (14:00)
[2016-09-19] MEDS ORDERED: FLUMAZENIL 0.5 MG/5 ML VIAL IV PUSH PRN (14:00)
[2016-09-19] MEDS ORDERED: HYDROmorphone HCL PF 1 MG/ML VIAL IV PUSH ONE (14:00)
[2016-09-19] MEDS ORDERED: LORazepam 1 MG TAB PO PRN (14:00)
[2016-09-19] MEDS ORDERED: ONDANSETRON HCL 4 MG/2 ML VIAL IVP ONE (14:00)
[2016-09-19 14:12] VITALS: O2SAT 97
[2016-09-19] MEDS ORDERED: DIATRIZOATE MEGLUM/DIATRIZOATE SOD 9 ML CUP ONE (14:15)
[2016-09-19 14:16] LABS: AUTOMATED NEUTROPHIL # 1.3 TH/MM3 (1.8-7.7); BASOPHIL % 1.2 % (0.0-2.0); EOSINOPHIL # 0.1 TH/MM3 (0-0.4); EOSINOPHIL % 4.1 % (0.0-4.0); HEMATOCRIT 40.3 % (39.0-51.0); LYMPH % 51.2 % (9.0-44.0); LYMPHOCYTE # 1.8 TH/MM3 (1.0-4.8); MEAN CELL VOLUME 93.8 FL (80.0-100.0); MEAN CORPUSCULAR HEMOGLOBIN 32.6 PG (27.0-34.0); MEAN CORPUSCULAR HGB CONC 34.7 % (32.0-36.0); MONO % 6.6 % (0.0-8.0); NEUT % 36.9 % (16.0-70.0); PLATELET COUNT 78 TH/MM3 (150-450); RED BLOOD COUNT 4.29 MIL/MM3 (4.50-5.90); RED CELL DISTRIBUTION WIDTH 14.1 % (11.6-17.2); WHITE BLOOD COUNT 3.5 TH/MM3 (4.0-11.0)
[2016-09-19 14:19] LABS: HEMO FLAGS AUTO DIFF
--- NOTE | 2016-09-19 14:25 | PD ---
HPI Chief Complaint: Abdominal Pain Time Seen by Provider: 14:13 Travel History International Travel<30 days: No Contact w/Intl Traveler<30days: No Traveled to known affect area: No History of Present Illness HPI 55-year-old male with PMH of chronic alcoholism, ulcerative colitis, CAD status post stenting, T2 DM presents to the ED for evaluation of 3 day history of 9/10 right lower quadrant pain. Gradual onset Accompanied by nausea, vomiting, bright green stools, low volume of urine. Patient denies fever, chills, hematochezia, melena, dysuria. Endorses chronic back pain, no worse with this abdominal pain. Patient endorses drinking "as much alcohol as I can get" daily. PFSH Past Medical History Arthritis: Yes Anxiety: Yes Depression: Yes Heart Rhythm Problems: No Cancer: No Cardiac Catheterization: Yes Cardiovascular Problems: Yes (STENTS) High Cholesterol: Yes Chemotherapy: No Congestive Heart Failure: No Cirrhosis: Yes COPD: Yes Cerebrovascular Accident: Yes Coronary Artery Disease: Yes Diabetes: No Diminished Hearing: No Endocrine: No Gastrointestinal Disorders: Yes (ulcerative colitis) Genitourinary: No Heparin Induced Thrombocytopen: No Hypertension: Yes Immune Disorder: No Implanted Vascular Access Dvce: Yes Reproductive: No Respiratory: Yes (COPD) Immunizations Current: No Myocardial Infarction: Yes (JULY 2014) Seizures: Yes Past Surgical History Body Medical Devices: PINS IN HAND, PIN AND PLATES IN HIP PER PATIENT Cardiac Surgery: Yes (2 stents) Coronary Artery Bypass Graft: No Coronary Stent: Yes Other Surgery: Yes (lt hip, rt hand, lt hand) Social History Alcohol Use: Yes (daily) Tobacco Use: Yes Substance Use: No Allergies-Medications (Allergen,Severity, Reaction): Coded Allergies: *MDRO Multi-Drug Resistant Organism (Verified Adverse Reaction, Unknown, ) MRSA leg wound 04/2015 MRSA PCR (nares) negative - 10/15/15 & 10/19/15 Cleared per Infection Control Morphine (Verified Adverse Reaction, Unknown, GI UPSET, 09/19/16) Reported Meds & Prescriptions Reported Meds & Active Scripts Active Tylenol (Acetaminophen) 325 Mg Tab 650 Mg PO Q8HR PRN Zofran Odt (Ondansetron Odt) 4 Mg Tab 4 Mg SL Q12HR PRN Review of Systems Except as stated in HPI: all other systems reviewed are Neg Physical Exam Narrative GENERAL: Well-nourished, well-developed disheveled white male in no acute distress. SKIN: Focused skin assessment warm/dry. Multiple small, superficial, crusted wounds on the bilateral lower extremities without signs of infection. HEAD: Normocephalic. EYES: No scleral icterus. No injection or drainage. NECK: Supple, trachea midline. No JVD or lymphadenopathy. CARDIOVASCULAR: Regular rate and rhythm without murmurs, gallops, or rubs. 2+ DP and radial pulses bilaterally. RESPIRATORY: Breath sounds clear and equal bilaterally. No accessory muscle use. GASTROINTESTINAL: Abdomen soft, nondistended.++ Right upper quadrant, epigastric , left upper quadrant and right lower quadrant pain. Voluntary guarding. MUSCULOSKELETAL: No cyanosis, or edema. Patient is ambulatory, moves extremities spontaneously. BACK: Nontender without obvious deformity. No CVA tenderness. Data Data Last Documented VS Vital Signs Date Time Temp Pulse Resp B/P Pulse Ox O2 Delivery O2 Flow Rate FiO2 09/19/16 16:48 78 18 128/83 95 Room Air 09/19/16 11:33 97.0 Orders Complete Blood Count With Diff (09/19/16 13:53) Comprehensive Metabolic Panel (09/19/16 13:53) Lipase (09/19/16 13:53) Lactic Acid (09/19/16 13:53) Prothrombin Time / Inr (Pt) (09/19/16 13:53) Act Partial Throm Time (Ptt) (09/19/16 13:53) Urinalysis - C+S If Indicated (09/19/16 13:53) Ct Abd/Pel W Iv Contrast(Rout) (09/19/16 13:53) Iv Access Insert/Monitor (09/19/16 13:53) Ecg Monitoring (09/19/16 13:53) Oximetry (09/19/16 13:53) NPO (09/19/16 13:53) Ondansetron Inj (Zofran Inj) (09/19/16 14:00) Sodium Chlor 0.9% 1000 Ml Inj (Ns 1000 M (09/19/16 13:53) Sodium Chloride 0.9% Flush (Ns Flush) (09/19/16 14:00) Hydromorphone Pf Inj (Dilaudid Pf Inj) (09/19/16 14:00) Alcohol Withdrawal Asmt-Ciwa ONCE (09/19/16 13:53) Flumazenil Inj (Romazicon Inj) (09/19/16 14:00) Lorazepam (Ativan) (09/19/16 14:00) Lorazepam Inj (Ativan Inj) (09/19/16 14:00) Lorazepam (Ativan) (09/19/16 14:00) Lorazepam Inj (Ativan Inj) (09/19/16 14:00) Lorazepam Inj (Ativan Inj) (09/19/16 14:00) Lorazepam Inj (Ativan Inj) (09/19/16 14:00) Oral Contrast - Adult (09/19/16 13:58) Diatrizoate Liq ( Gastroview Liq) (09/19/16 14:15) Iohexol 350 Inj (Omnipaque 350 Inj) (09/19/16 16:39) Alcohol (Ethanol) (09/19/16 16:57) Labs Laboratory Tests Test 09/19/16 09/19/16 14:09 14:51 White Blood Count 3.5 TH/MM3 Red Blood Count 4.29 MIL/MM3 Hemoglobin 14.0 GM/DL Hematocrit 40.3 % Mean Corpuscular Volume 93.8 FL Mean Corpuscular Hemoglobin 32.6 PG Mean Corpuscular Hemoglobin 34.7 % Concent Red Cell Distribution Width 14.1 % Platelet Count 78 TH/MM3 Mean Platelet Volume 8.4 FL Neutrophils (%) (Auto) 36.9 % Lymphocytes (%) (Auto) 51.2 % Monocytes (%) (Auto) 6.6 % Eosinophils (%) (Auto) 4.1 % Basophils (%) (Auto) 1.2 % Neutrophils # (Auto) 1.3 TH/MM3 Lymphocytes # (Auto) 1.8 TH/MM3 Monocytes # (Auto) 0.2 TH/MM3 Eosinophils # (Auto) 0.1 TH/MM3 Basophils # (Auto) 0.0 TH/MM3 CBC Comment AUTO DIFF Differential Comment AUTO DIFF CONFIRMED Platelet Estimate LOW Platelet Morphology Comment NORMAL Prothrombin Time 10.2 SEC Prothromb Time International 0.9 RATIO Ratio Activated Partial 26.7 SEC Thromboplast Time Sodium Level 140 MEQ/L Potassium Level 4.0 MEQ/L Chloride Level 105 MEQ/L Carbon Dioxide Level 26.5 MEQ/L Anion Gap 9 MEQ/L Blood Urea Nitrogen 7 MG/DL Creatinine 0.69 MG/DL Estimat Glomerular Filtration 119 ML/MIN Rate Random Glucose 85 MG/DL Lactic Acid Level 1.9 mmol/L Calcium Level 8.1 MG/DL Total Bilirubin 0.4 MG/DL Aspartate Amino Transf 145 U/L (AST/SGOT) Alanine Aminotransferase 125 U/L (ALT/SGPT) Alkaline Phosphatase 166 U/L Total Protein 7.9 GM/DL Albumin 4.0 GM/DL Lipase 455 U/L Urine Color YELLOW Urine Turbidity CLEAR Urine pH 5.0 Urine Specific [place] 1.008 Urine Protein NEG mg/dL Urine Glucose (UA) NEG mg/dL Urine Ketones NEG mg/dL Urine Occult Blood NEG Urine Nitrite NEG Urine Bilirubin NEG Urine Urobilinogen LESS THAN 2.0 MG/DL Urine Leukocyte Esterase NEG Urine RBC LESS THAN 1 /hpf Urine WBC LESS THAN 1 /hpf Urine Mucus FEW /lpf Microscopic Urinalysis Comment CULT NOT INDICATED MDM Medical Decision Making Medical Screen Exam Complete: Yes Emergency Medical Condition: Yes Differential Diagnosis Appendicitis versus cholecystitis versus pancreatitis versus bowel obstruction versus liver failure versus SELWYN versus UTI versus chronic alcoholism versus malingering vesrus other Narrative Course 55-year-old male with PMH of chronic alcoholism, ulcerative colitis, CAD status post stenting, T2 DM presents to the ED for evaluation of 3 day history of 9/10 right lower quadrant pain. Gradual onset Accompanied by nausea, NBNB vomiting, bright green stools, low volume of urine. Patient denies fever, chills, hematochezia, melena, dysuria. Endorses chronic back pain, no worse with this abdominal pain. Patient endorses drinking "as much alcohol as I can get" daily. Vitals reviewed. Physical exam reveals a disheveled male in no acute distress. There is tenderness to palpation in the right upper quadrant, epigastric region, left upper quadrant and right lower quadrant regions. Hypoactive bowel sounds, voluntary guarding. No CVA tenderness. IV was established. Patient was placed on continuous monitoring. He is administered a liter of normal saline, 4 mg Zofran, 1 mg Dilaudid. He was placed on CIWA protocol. CBC: WBC 3.5. Hemoglobin 14.0. Platelets 78, chronic CMP: AST 145, ALT 125, alkaline phosphatase 166---chronic Lipase: 455 Lactate: 1.9 UA: No culture indicated Abdominal CT: Stable diffuse fatty liver infiltrates, otherwise unchanged compared to prior study per radiology read. On recheck the patient is sleeping in the exam room. Unsure of the source of his RLQ pain. Patient was provided a few doses of tylenol and zofran. He's instructed to take meds as prescribed, follow-up with fact regarding his chronic alcoholism, return to the ED for worsening of symptoms. He indicated understanding of instructions and is agreeable care plan. Patient is stable and discharged home. Upon cleaning the room it was discovered that the patient left his discharge papers and prescriptions behind. Diagnosis Primary Impression: Abdominal pain Qualified Code: R10.31 - Right lower quadrant abdominal pain Additional Impression: Alcohol dependence Qualified Code: F10.29 - Alcohol dependence with unspecified alcohol-induced disorder Referrals: [facility] (Out patient) Primary Care Physician Patient Instructions: Abdominal Pain (ED), Acute Abdominal Pain (DC), Acute Abdominal Pain (ED), Acute Nausea and Vomiting (ED), General Instructions Additional Instructions: Rest, hydrate. Take zofran as prescribed. Follow up with your PCP for evaluation of abdominal pain. Follow up with [facility] for chronic alcoholism. Return to the ED for any urgent or emergent medical condition. Med/Other Pt SpecificInfo: Prescription(s) given Scripts Acetaminophen (Tylenol)325 Mg Yes590 Mg PO Q8HR PRN (PAIN SCALE 1 TO 10) #10 TAB Ref 0 Prov:Arnie Abarca MD 09/19/16 Ondansetron Odt (Zofran Odt)4 Mg Tab4 Mg SL Q12HR PRN (Nausea/Vomiting) #6 TAB Ref 0 Prov:Arnie Abarca MD 09/19/16 Disposition: 01 DISCHARGE HOME Condition: Stable Leah Hagan September 19, 2016 14:25
[2016-09-19 14:31] LABS: APTT (PATIENT) 26.7 SEC (24.3-30.1); INTERNATIONAL NORMALIZED RATIO 0.9 RATIO; PROTHROMBIN TIME - PATIENT 10.2 SEC (9.8-11.6)
[2016-09-19 14:38] LABS: ANION GAP 9 MEQ/L (5-15); AST (GOT) 145 U/L (15-37); BICARBONATE 26.5 MEQ/L (21.0-32.0); BLOOD UREA NITROGEN 7 MG/DL (7-18); CHLORIDE 105 MEQ/L (98-107); GLOMERULAR FILTRATION RATE 119 ML/MIN (>89); SODIUM (NA) 140 MEQ/L (136-145)
[2016-09-19 14:44] LABS: PLATELET ESTIMATE SMEAR LOW (NORMAL); PLATELET MORPHOLOGY NORMAL (NORMAL); SCAN/DIFF AUTO DIFF CONFIRMED
[2016-09-19 14:51] LABS: ALKALINE PHOSPHATASE 166 U/L (45-117); ALT (GPT) 125 U/L (12-78); TOTAL BILIRUBIN ADULT 0.4 MG/DL (0.2-1.0)
[2016-09-19 14:58] VITALS: BP 133/65; PULSE 52; RESP 18; O2SAT 99
[2016-09-19 15:29] LABS: BLOOD, URINE NEG (NEG); COMMENT (UR) CULT NOT INDICATED; CULTURE IF INDICATED CULT NOT INDICATED; GLUCOSE,URINE NEG (NEG); KETONE, URINE NEG (NEG); MUCUS URINE FEW /lpf (OCC); NITRITE,URINE NEG (NEG); URINE COLOR YELLOW (YELLW/STRAW)
[2016-09-19] MEDS ORDERED: IOHEXOL 350 MG/ML 10 ML VIAL (for RAD DIAG) IV ONE (16:39)
[2016-09-19 16:48] VITALS: BP 128/83; PULSE 78; RESP 18; O2SAT 95
--- NOTE | 2016-09-19 16:52 | RADRPT ---
EXAM DATE/TIME: 09/19/2016 16:35 [facility] COMPARISON: CT ABDOMEN & PELVIS W CONTRAST, December 31, 2015, 13:36. INDICATIONS : Patient complains of right lower quad pain for 3 days, difficulty urinating. IV CONTRAST: 96 cc Omnipaque 350 (iohexol) IV ORAL CONTRAST: Prescribed oral contrast ingested. RADIATION DOSE: 6.34 CTDIvol (mGy) MEDICAL HISTORY : Cardiovascular disease. Chronic obstructive pulmonary disease. Hypertension.cirrhosis,cardiac stent, CA SURGICAL HISTORY : None. ENCOUNTER: Initial ACUITY: 3 days PAIN SCALE: 9/10 LOCATION: Bilateral lower quadrant TECHNIQUE: Volumetric scanning of the abdomen and pelvis was performed. Using automated exposure control and ad justment of the mA and/or kV according to patient size, radiation dose was kept as low as reasonably achievable to obtain optimal diagnostic quality images. FINDINGS: LOWER LUNGS: The visualized lower lungs are clear. LIVER: Homogeneous density without lesion. There is no dilation of the biliary tree. No calcified gallston es. Stable diffuse fatty infiltration of the liver. SPLEEN: Normal size without lesion. PANCREAS: Within normal limits. KIDNEYS: Normal in size and shape. There is no mass, stone or hydronephrosis. ADRENAL GLANDS: Within normal limits. VASCULAR: There is no aortic aneurysm. BOWEL/MESENTERY: The stomach, small bowel, and colon demonstrate no acute abnormality. There is no free intraperitone al air or fluid. The appendix is unremarkable. No inflammatory changes. ABDOMINAL WALL: Within normal limits. RETROPERITONEUM: There is no lymphadenopathy. BLADDER: No wall thickening or mass. REPRODUCTIVE: Within normal limits. INGUINAL: There is no lymphadenopathy or hernia. MUSCULOSKELETAL: Within normal limits for patient age. CONCLUSION: 1. Stable diffuse fatty infiltration liver. 2. Otherwise, no significant change compared to the prior study. Bridger Lawson MD on September 19, 2016 at 16:49 Board Certified Radiologist. This report was verified electronically.
[2016-09-19] MEDS ORDERED: ZOFR4TAB3 SL (17:12)
[2016-09-19] MEDS ORDERED: TYLE325T PO (17:12)
== END 2016-09-19 17:33 | disposition home or self-care (01) ==
LOC: NEPD 11:20
DX: R10.31 Right lower quadrant pain (principal); F10.29 Alcohol dependence with unspecified alcohol-induced disorder; R11.2 Nausea with vomiting, unspecified; R19.5 Other fecal abnormalities; I10 Essential (primary) hypertension; K74.60 Unspecified cirrhosis of liver; E78.00 Pure hypercholesterolemia, unspecified; Z72.0 Tobacco use; Z87.39 Personal history of other diseases of the musculoskeletal system and connective tissue; Z86.59 Personal history of other mental and behavioral disorders; Z86.79 Personal history of other diseases of the circulatory system; Z87.09 Personal history of other diseases of the respiratory system; Z87.19 Personal history of other diseases of the digestive system; Z86.69 Personal history of other diseases of the nervous system and sense organs
CPT/HCPCS: 74177; 80053; 80307; 81001; 83605; 83690; 85025; 85610; 85730; 96361; 96374; 96375; 99284; J1170; J2405; J7030; Q9963; Q9967

== ENCOUNTER 2016-09-23 18:46 | Emergency (ER) | payer OTHER ==
[~2016-09-23 18:46] MED LIST changes: -DILA100C PO; +TYLE325T PO; +ZOFR4TAB3 SL
[2016-09-23 19:53] VITALS: BP 116/86; PULSE 89; RESP 18; TEMP 97.8; O2SAT 96
--- NOTE | 2016-09-23 20:39 | PD ---
HPI Chief Complaint: Alcohol/Drug Intoxication Time Seen by Provider: 20:34 Travel History International Travel<30 days: No Contact w/Intl Traveler<30days: No Traveled to known affect area: No History of Present Illness HPI 55-year-old male presents to the emergency department under Morgan act for alcohol intoxication. Patient states that he had "a few" alcoholic beverages today. He states he drinks every day. He states the police picked him up stating that he was intoxicated. He denies any trauma. Patient reports history of abdominal pain. He states he was recently seen in the emergency department for this and does not want to be reevaluated for it. He has no medical complaints at this time. He states he would like to go home. The patient answers all my questions appropriately. He is walking with a steady gait. He has no fevers or chills. No chest pain or shortness of breath. No nausea or vomiting. No diarrhea. Patient denies a thoughts of hurting himself or anybody else. PFSH Past Medical History Arthritis: Yes Anxiety: Yes Depression: Yes Heart Rhythm Problems: No Cancer: No Cardiac Catheterization: Yes Cardiovascular Problems: Yes (STENTS) High Cholesterol: Yes Chemotherapy: No Congestive Heart Failure: No Cirrhosis: Yes COPD: Yes Cerebrovascular Accident: Yes Coronary Artery Disease: Yes Diabetes: No Diminished Hearing: No Endocrine: No Gastrointestinal Disorders: Yes (ulcerative colitis) Genitourinary: No Heparin Induced Thrombocytopen: No Hypertension: Yes Immune Disorder: No Implanted Vascular Access Dvce: Yes Reproductive: No Respiratory: Yes (COPD) Immunizations Current: No Myocardial Infarction: Yes (JULY 2014) Seizures: Yes Past Surgical History Body Medical Devices: PINS IN HAND, PIN AND PLATES IN HIP PER PATIENT Cardiac Surgery: Yes (2 stents) Coronary Artery Bypass Graft: No Coronary Stent: Yes Other Surgery: Yes (lt hip, rt hand, lt hand) Social History Alcohol Use: Yes (daily) Tobacco Use: Yes Substance Use: No Allergies-Medications (Allergen,Severity, Reaction): Coded Allergies: *MDRO Multi-Drug Resistant Organism (Verified Adverse Reaction, Unknown, ) MRSA leg wound 04/2015 MRSA PCR (nares) negative - 10/15/15 & 10/19/15 Cleared per Infection Control Morphine (Verified Adverse Reaction, Unknown, GI UPSET, 09/23/16) Reported Meds & Prescriptions Reported Meds & Active Scripts Active No Active Prescriptions or Reported Medications Review of Systems Except as stated in HPI: all other systems reviewed are Neg Physical Exam Narrative GENERAL: Well-nourished, well-developed male patient, ambulatory with a steady gait. Afebrile. SKIN: Focused skin assessment warm/dry. No lacerations or abrasions. HEAD: Normocephalic. Atraumatic. EYES: No scleral icterus. No injection or drainage. NECK: Supple, trachea midline. No JVD or lymphadenopathy. CARDIOVASCULAR: Regular rate and rhythm without murmurs, gallops, or rubs. RESPIRATORY: Breath sounds equal bilaterally. No accessory muscle use. Lungs sounds are clear to auscultation. GASTROINTESTINAL: Abdomen soft and nondistended. Patient has diffuse tenderness to palpation. MUSCULOSKELETAL: No cyanosis, or edema. BACK: Nontender without obvious deformity. No CVA tenderness. PSYCHIATRIC: No delusional thought processes. No hallucinations. Data Data Last Documented VS Vital Signs Date Time Temp Pulse Resp B/P Pulse Ox O2 Delivery O2 Flow Rate FiO2 09/23/16 19:53 97.8 89 18 116/86 96 Room Air MDM Medical Decision Making Medical Screen Exam Complete: Yes Emergency Medical Condition: Yes Medical Record Reviewed: Yes Differential Diagnosis Alcohol intoxication versus alcohol dependence versus abdominal pain Narrative Course 55-year-old male presents to the emergency Department under Morgan actually alcohol intoxication. On exam, he does have abdominal tenderness to palpation. Patient was seen on September 19, 2016. At that time, he has slightly elevated lipase of 455, elevated liver enzymes. Otherwise, no acute abnormalities. CT abdomen/pelvis showed no acute abnormality. I discussed the patient that alcohol is not going to help his abdominal pain and elevated liver enzymes. He states he understands this. Patient states he does not want to be evaluated for this abdominal pain as he was recently evaluated for it. Patient would like to go home. Patient is answering all my questions appropriately. Speech is clear. Patient has a steady gait. Diagnosis Primary Impression: Alcohol intoxication Qualified Code: F10.920 - Alcohol intoxication, uncomplicated Referrals: [facility] Patient Instructions: Alcohol Intoxication (ED), General Instructions Additional Instructions: Follow-up at [facility] for alcohol rehab. Return to the emergency department for any acute worsening of symptoms. Scripts No Active Prescriptions or Reported Meds Disposition: 01 DISCHARGE HOME Condition: Stable [place],[facility] September 23, 2016 20:39
== END 2016-09-23 20:45 | disposition home or self-care (01) ==
LOC: NEDAMB 18:46
DX: F10.120 Alcohol abuse with intoxication, uncomplicated (principal); R10.819 Abdominal tenderness, unspecified site; R74.8 Abnormal levels of other serum enzymes; I10 Essential (primary) hypertension; K74.60 Unspecified cirrhosis of liver; E78.00 Pure hypercholesterolemia, unspecified; Z72.0 Tobacco use; Z87.39 Personal history of other diseases of the musculoskeletal system and connective tissue; Z86.59 Personal history of other mental and behavioral disorders; Z86.79 Personal history of other diseases of the circulatory system; Z87.09 Personal history of other diseases of the respiratory system; Z87.19 Personal history of other diseases of the digestive system; Z86.69 Personal history of other diseases of the nervous system and sense organs
CPT/HCPCS: 99284

== ENCOUNTER 2016-10-19 18:29 | Emergency (ER) | payer OTHER ==
[~2016-10-19] VITALS: Ht 165.1 cm; Wt 63.6 kg
[2016-10-19 19:21] VITALS: BP 126/76; PULSE 72; RESP 16; TEMP 98.7; O2SAT 95
--- NOTE | 2016-10-19 19:29 | PD ---
HPI Chief Complaint: Psychiatric Symptoms Time Seen by Provider: 19:26 Travel History International Travel<30 days: No Contact w/Intl Traveler<30days: No Traveled to known affect area: No History of Present Illness HPI 55-year-old male with a history of alcohol abuse presents to the emergency department under FittingRoom act for suicidal ideations. Review Cordero act report the patient was at the library and told the library safety and security manager that he was thinking about hurting himself because he is homeless. Library safety and security manager called the police department. The patient admits that he is depressed about his homelessness. He denies suicidal ideations. Denies any attempts to harm himself, denies any ingestion of substances in an attempt to harm himself. Denies any homicidal ideations. Admits to daily alcohol use. States his last drink was about 6 hours ago and thinks he is going to go into withdrawals. Denies any drug use. Denies any medical complaints. Denies any chest pain, shortness of breath, abdominal pain, nausea, vomiting, diarrhea, lightheadedness , dizziness. PFSH Past Medical History Arthritis: Yes Anxiety: Yes Depression: Yes Heart Rhythm Problems: No Cancer: No Cardiac Catheterization: Yes Cardiovascular Problems: Yes (STENTS) High Cholesterol: Yes Chemotherapy: No Congestive Heart Failure: No Cirrhosis: Yes COPD: Yes Cerebrovascular Accident: Yes Coronary Artery Disease: Yes Diabetes: No Diminished Hearing: No Endocrine: No Gastrointestinal Disorders: Yes (ulcerative colitis) Genitourinary: No Heparin Induced Thrombocytopen: No Hypertension: Yes Immune Disorder: No Implanted Vascular Access Dvce: Yes Reproductive: No Respiratory: Yes (COPD) Immunizations Current: No Myocardial Infarction: Yes (JULY 2014) Seizures: Yes Past Surgical History Body Medical Devices: PINS IN HAND, PIN AND PLATES IN HIP PER PATIENT Cardiac Surgery: Yes (2 stents) Coronary Artery Bypass Graft: No Coronary Stent: Yes Other Surgery: Yes (lt hip, rt hand, lt hand) Social History Alcohol Use: Yes (daily) Tobacco Use: Yes Substance Use: No Allergies-Medications (Allergen,Severity, Reaction): Coded Allergies: *MDRO Multi-Drug Resistant Organism (Verified Adverse Reaction, Unknown, ) MRSA leg wound 04/2015 MRSA PCR (nares) negative - 10/15/15 & 10/19/15 Cleared per Infection Control Morphine (Verified Adverse Reaction, Unknown, GI UPSET, 10/19/16) Reported Meds & Prescriptions Reported Meds & Active Scripts Active No Active Prescriptions or Reported Medications Review of Systems Except as stated in HPI: all other systems reviewed are Neg Physical Exam Narrative GENERAL: Well-nourished and well-developed pleasant male patient in no acute distress. SKIN: Warm and dry. HEAD: Normocephalic and atraumatic. EYES: No injection, drainage, or hyphema noted. PERRLA. EOMI. ENT: No nasal drainage noted. Oropharynx is clear. NECK: Supple and the trachea is midline. CARDIOVASCULAR: Regular rate and rhythm. RESPIRATORY: Breath sounds are equal bilaterally with no accessory muscle use, wheezing, rhonchi, or crackles. GASTROINTESTINAL: Abdomen is soft, non-tender, and nondistended. MUSCULOSKELETAL: No obvious deformities, swelling, cyanosis, or ecchymosis is present throughout the upper and lower extremities. Patient has full range of motion without any signs of neurovascular compromise. NEUROLOGICAL: Awake, alert, and oriented. Normal speech and gait. Cranial nerves are grossly intact. Data Data Last Documented VS Vital Signs Date Time Temp Pulse Resp B/P Pulse Ox O2 Delivery O2 Flow Rate FiO2 10/19/16 19:21 98.7 72 16 126/76 95 Orders Complete Blood Count With Diff (10/19/16 19:22) Comprehensive Metabolic Panel (10/19/16 19:22) Psych Screen (10/19/16 19:22) Drug Screen, Random Urine (10/19/16 19:22) Alcohol (Ethanol) (10/19/16 19:22) Diet Regular Basic (10/20/16 Breakfast) Labs Laboratory Tests Test 10/19/16 19:40 White Blood Count 3.8 TH/MM3 Red Blood Count 4.13 MIL/MM3 Hemoglobin 13.4 GM/DL Hematocrit 40.7 % Mean Corpuscular Volume 98.7 FL Mean Corpuscular Hemoglobin 32.5 PG Mean Corpuscular Hemoglobin 32.9 % Concent Red Cell Distribution Width 14.2 % Platelet Count 90 TH/MM3 Mean Platelet Volume 8.3 FL Neutrophils (%) (Auto) 36.0 % Lymphocytes (%) (Auto) 49.6 % Monocytes (%) (Auto) 9.1 % Eosinophils (%) (Auto) 4.3 % Basophils (%) (Auto) 1.0 % Neutrophils # (Auto) 1.4 TH/MM3 Lymphocytes # (Auto) 1.9 TH/MM3 Monocytes # (Auto) 0.3 TH/MM3 Eosinophils # (Auto) 0.2 TH/MM3 Basophils # (Auto) 0.0 TH/MM3 CBC Comment AUTO DIFF Sodium Level 142 MEQ/L Potassium Level 4.0 MEQ/L Chloride Level 107 MEQ/L Carbon Dioxide Level 25.6 MEQ/L Anion Gap 9 MEQ/L Blood Urea Nitrogen 7 MG/DL Creatinine 0.66 MG/DL Estimat Glomerular Filtration 126 ML/MIN Rate Random Glucose 92 MG/DL Calcium Level 8.2 MG/DL Total Bilirubin 0.3 MG/DL Aspartate Amino Transf 186 U/L (AST/SGOT) Alanine Aminotransferase 204 U/L (ALT/SGPT) Alkaline Phosphatase 180 U/L Total Protein 7.9 GM/DL Albumin 3.9 GM/DL Urine Opiates Screen NEG Urine Barbiturates Screen NEG Urine Amphetamines Screen NEG Urine Benzodiazepines Screen POS Urine Cocaine Screen NEG Urine Cannabinoids Screen NEG Ethyl Alcohol Level 288 MG/DL MDM Medical Decision Making Medical Screen Exam Complete: Yes Emergency Medical Condition: Yes Differential Diagnosis Differential: Depression versus adjustment reaction versus anxiety versus PTSD versus psychosis NOS versus mood disorder NOS versus substance induced mood disorder versus ODD versus adjustment reaction versus schizophrenia versus bipolar disorder versus schizoaffective versus electrolyte abnormality versus dementia versus malingering. Narrative Course Patient presents under a Cordero act. Physical examination and vital signs are essentially unremarkable. Patient has no medical complaints to report. Psych screen has been ordered. CBC and CMP are unremarkable for any acute abnormalities. EtOH is 288. Urine tox is positive for benzodiazepines. The patient is medically cleared for psychiatric evaluation and disposition. Diagnosis Primary Impression: Substance induced mood disorder Scripts No Active Prescriptions or Reported Meds Renae Mckee Oct 19, 2016 19:29
[2016-10-19 20:05] LABS: AUTOMATED NEUTROPHIL # 1.4 TH/MM3 (1.8-7.7); EOSINOPHIL # 0.2 TH/MM3 (0-0.4); EOSINOPHIL % 4.3 % (0.0-4.0); HEMATOCRIT 40.7 % (39.0-51.0); LYMPH % 49.6 % (9.0-44.0); LYMPHOCYTE # 1.9 TH/MM3 (1.0-4.8); MEAN CELL VOLUME 98.7 FL (80.0-100.0); MEAN CORPUSCULAR HEMOGLOBIN 32.5 PG (27.0-34.0); MEAN CORPUSCULAR HGB CONC 32.9 % (32.0-36.0); MONO % 9.1 % (0.0-8.0); PLATELET COUNT 90 TH/MM3 (150-450); RED BLOOD COUNT 4.13 MIL/MM3 (4.50-5.90); RED CELL DISTRIBUTION WIDTH 14.2 % (11.6-17.2); WHITE BLOOD COUNT 3.8 TH/MM3 (4.0-11.0)
[2016-10-19 20:09] LABS: HEMO FLAGS AUTO DIFF
[2016-10-19 20:24] LABS: AMPHETAMINE, URINE NEG (NEG); BARBITURATES, URINE NEG (NEG); COCAINE, URINE NEG (NEG)
[2016-10-19 20:29] LABS: ANION GAP 9 MEQ/L (5-15); AST (GOT) 186 U/L (15-37); BICARBONATE 25.6 MEQ/L (21.0-32.0); BLOOD UREA NITROGEN 7 MG/DL (7-18); CHLORIDE 107 MEQ/L (98-107); GLOMERULAR FILTRATION RATE 126 ML/MIN (>89); SODIUM (NA) 142 MEQ/L (136-145)
[2016-10-19 20:30] LABS: ALT (GPT) 204 U/L (12-78)
[2016-10-19 20:34] LABS: ALKALINE PHOSPHATASE 180 U/L (45-117); TOTAL BILIRUBIN ADULT 0.3 MG/DL (0.2-1.0)
[2016-10-19 21:41] LABS: PLATELET ESTIMATE SMEAR LOW (NORMAL); SCAN/DIFF AUTO DIFF CONFIRMED
[2016-10-19 21:42] LABS: PLATELET MORPHOLOGY NORMAL (NORMAL)
[2016-10-20 00:26] VITALS: BP 110/65; PULSE 78; RESP 14
[2016-10-20 02:31] VITALS: BP 101/66; PULSE 84; RESP 16; TEMP 99.5; O2SAT 95
[2016-10-20] MEDS ORDERED: LORazepam 2 MG/ML VIAL IV PUSH PRN ×4 (06:15)
[2016-10-20] MEDS ORDERED: LORazepam 2 MG TAB PO PRN (06:15)
[2016-10-20] MEDS ORDERED: FLUMAZENIL 0.5 MG/5 ML VIAL IV PUSH PRN (06:15)
[2016-10-20] MEDS ORDERED: LORazepam 1 MG TAB PO PRN (06:15)
[2016-10-20 06:36] VITALS: BP 171/70; PULSE 66; RESP 18; TEMP 98.2; O2SAT 95
[2016-10-20 11:22] VITALS: BP 171/70; TEMP 98.2
--- NOTE | 2016-10-20 11:24 | PD ---
History of Present Illness Chief Complaint: Psychiatric Symptoms Time Seen by Provider: 11:10 Travel History International Travel<30 Days: No Contact w/Intl Traveler<30days: No Known affected area: No Legal Status Legal Status: Cordero Act Cordero Act Signed By: Gianluca Kwon Cordero Act Comment: 10/19/2016 6:10 PM History of Present Illness: History of Present Illness HPI 55-year-old male with a history of alcohol dependence presents to the emergency department under Cordero act initiated by NOÉ. The BA alleges that he was at a local library and a application security engineer overheard him tell another person that he wanted to hurt himself. When the police arrived he told them he was tired of being homeless and that he had a firearm. The patient did not harm himself in any way. he was intoxicated when he made the statement and presented to ED with BAL of 288 and positive toxicology for benzodiazepine. EMR is reviewed. He has had several visits to ED for evaluation of alcohol related complaints dating back to 2013. Patient is allowed to sober up clinically. He is alert, oriented, cooperative. His speech is clear and logical. There is no psychosis, no nic and denies any suicidal or homicidal ideation. He states that he was drunk when he made the statement. " I said it because I was drunk. I never would do that . It's against my alevism". The patient denies that he is significantly depressed at this time. I have talked with him regarding treatment for his alcohol abuse and he declines treatment at this time. He stes " I have been to at least 8 different programs and was last at the [facility] 3 months ago but I start drinking once I get out". PFSH Past Medical History Arthritis: Yes Anxiety: Yes Depression: Yes Cardiac Catheterization: Yes Cardiovascular Problems: Yes (STENTS) High Cholesterol: Yes Chemotherapy: No Congestive Heart Failure: No Cirrhosis: Yes COPD: Yes Cerebrovascular Accident: Yes Coronary Artery Disease: Yes Diabetes: No Diminished Hearing: No Endocrine: No Gastrointestinal Disorders: Yes (ulcerative colitis) Genitourinary: No Heparin Induced Thrombocytopen: No Hypertension: Yes Immune Disorder: No Implanted Vascular Access Dvce: Yes Reproductive: No Respiratory: Yes (COPD) Immunizations Current: No Myocardial Infarction: Yes (JULY 2014) Seizures: Yes Past Surgical History Body Medical Devices: PINS IN HAND, PIN AND PLATES IN HIP PER PATIENT Cardiac Surgery: Yes (2 stents) Coronary Stent: Yes Other Surgery: Yes (lt hip, rt hand, lt hand) Psychiatric History Psychiatric History Hx Psychiatric Treatment: HX OF DEPRESSION. NO KNOWN HX OF INPATIENT PSYCH ADMISSIONS. History of Inpatient Treatment: No Guns or firearms in home: No Social History male. Homeless. Unemployed. Hx Alcohol Use: Yes (daily..LAST DRINK 6 HOURS AGO ) Hx Tobacco Use: Yes Hx Substance Use: No Substance Use Type: Alcohol (Has been drinking for more that 20 years. ), Nicotine/Cigarettes Other Substances Used: 2 ppd Hx of Substance Use Treatment: Yes Family Psychiatric History Negative Allergies-Medications (Allergen,Severity, Reaction): Coded Allergies: *MDRO Multi-Drug Resistant Organism (Verified Adverse Reaction, Unknown, ) MRSA leg wound 04/2015 MRSA PCR (nares) negative - 10/15/15 & 10/19/15 Cleared per Infection Control Morphine (Verified Adverse Reaction, Unknown, GI UPSET, 10/19/16) Reported Meds & Prescriptions Reported Meds & Active Scripts Active No Active Prescriptions or Reported Medications Review of Systems Except as stated in HPI: all other systems reviewed are Neg Exam Alert: Yes [place]: Person (ox4) Mood: Calm Affect: Appropriate Speech: Clear, Logical Eye Contact: Normal Memory Intact: Comment (No impairmetn) Hallucinations: Other (negative) Delusions: No Suicidal: Ideation (negative) Homicidal: Ideation (Negative) Insight/Judgement Poor. Poor MDM Medical Decision Making Medical Record Reviewed: Yes Assessment/Plan 55 year old male with primary dx of alcohol dependence who presents under a BA after he was heard making suicidal statements while intoxicated. The patient once clinically sober denies any suicidal or homicidal ideation, intent or plan. he has no acces to weapons. At this time he does not meet criteria for BA and he is requesting discharge . He declines referral for treatment of his alcohol addiction and is competent at this time to make such decision. [facility] deos [facility] Orders Complete Blood Count With Diff (10/19/16 19:22) Comprehensive Metabolic Panel (10/19/16 19:22) Psych Screen (10/19/16 19:22) Drug Screen, Random Urine (10/19/16 19:22) Alcohol (Ethanol) (10/19/16 19:22) Diet Regular Basic (10/20/16 Breakfast) Alcohol Withdrawal Asmt-Ciwa ONCE (10/20/16 06:12) Flumazenil Inj (Romazicon Inj) (10/20/16 06:15) Lorazepam (Ativan) (10/20/16 06:15) Lorazepam Inj (Ativan Inj) (10/20/16 06:15) Lorazepam (Ativan) (10/20/16 06:15) Lorazepam Inj (Ativan Inj) (10/20/16 06:15) Lorazepam Inj (Ativan Inj) (10/20/16 06:15) Lorazepam Inj (Ativan Inj) (10/20/16 06:15) Diet Regular Basic (10/20/16 Lunch) Results Vital Signs Date Time Temp Pulse Resp B/P Pulse Ox O2 Delivery O2 Flow Rate FiO2 10/20/16 06:36 98.2 66 18 171/70 95 10/20/16 02:31 99.5 84 16 101/66 95 Room Air 10/20/16 00:26 78 14 110/65 Room Air 95 10/19/16 19:21 98.7 72 16 126/76 95 Laboratory Tests Test 10/19/16 19:40 White Blood Count 3.8 Red Blood Count 4.13 Hemoglobin 13.4 Hematocrit 40.7 Mean Corpuscular Volume 98.7 Mean Corpuscular Hemoglobin 32.5 Mean Corpuscular Hemoglobin 32.9 Concent Red Cell Distribution Width 14.2 Platelet Count 90 Mean Platelet Volume 8.3 Neutrophils (%) (Auto) 36.0 Lymphocytes (%) (Auto) 49.6 Monocytes (%) (Auto) 9.1 Eosinophils (%) (Auto) 4.3 Basophils (%) (Auto) 1.0 Neutrophils # (Auto) 1.4 Lymphocytes # (Auto) 1.9 Monocytes # (Auto) 0.3 Eosinophils # (Auto) 0.2 Basophils # (Auto) 0.0 CBC Comment AUTO DIFF Differential Comment AUTO DIFF CONFIRMED Platelet Estimate LOW Platelet Morphology Comment NORMAL Sodium Level 142 Potassium Level 4.0 Chloride Level 107 Carbon Dioxide Level 25.6 Anion Gap 9 Blood Urea Nitrogen 7 Creatinine 0.66 Estimat Glomerular Filtration 126 Rate Random Glucose 92 Calcium Level 8.2 Total Bilirubin 0.3 Aspartate Amino Transf 186 (AST/SGOT) Alanine Aminotransferase 204 (ALT/SGPT) Alkaline Phosphatase 180 Total Protein 7.9 Albumin 3.9 Urine Opiates Screen NEG Urine Barbiturates Screen NEG Urine Amphetamines Screen NEG Urine Benzodiazepines Screen POS Urine Cocaine Screen NEG Urine Cannabinoids Screen NEG Ethyl Alcohol Level 288 Diagnosis Primary Impression: Alcoholism Additional Impressions: Alcohol intoxication Alcohol dependence with intoxication Psychiatrically Cleared: Yes [facility]errals[facility] Departure Forms: Tests/Procedures Patient Instructions: General Instructions, Alcohol Intoxication (ED), Abuse of Alcohol (ED), Alcohol Dependence (ED) Additional Instructions: DISCHARGE HOME DX. ALCOHOL INTOXICATION FOLLOW-UP NEEDED WITH [facility] RETURN TO ED FOR CONTINUING PROBLEMS Med/ Other Pt Specific Info: No Meds Exist/No RX given Prescriptions No Active Prescriptions or Reported Meds Disposition: DISCHARGE HOME Condition: Stable Problem Qualifiers Additional Impressions: Alcohol dependence with intoxication Qualified Code: F10.220 - Alcohol dependence with uncomplicated intoxication Brandy Mccurdy Oct 20, 2016 11:24
== END 2016-10-20 11:26 | disposition home or self-care (01) ==
LOC: NEPC 18:29 → NEPJ 10-20 11:26
DX: F10.24 Alcohol dependence with alcohol-induced mood disorder (principal); Y90.8 Blood alcohol level of 240 mg/100 ml or more; I10 Essential (primary) hypertension; J44.9 Chronic obstructive pulmonary disease, unspecified; E78.00 Pure hypercholesterolemia, unspecified; I25.2 Old myocardial infarction; Z59.0 Homelessness; Z56.0 Unemployment, unspecified; Z87.891 Personal history of nicotine dependence
CPT/HCPCS: 80053; 80307; 85025; 99284

== ENCOUNTER 2016-11-14 17:10 | Emergency (ER) | payer OTHER ==
[~2016-11-14] VITALS: Ht 175.3 cm; Wt 80.0 kg
[2016-11-14 17:15] VITALS: BP 112/68; PULSE 88; RESP 14; TEMP 98.4; O2SAT 93
[2016-11-14 20:39] LABS: ANION GAP 8 MEQ/L (5-15); AST (GOT) 211 U/L (15-37); BICARBONATE 25.5 MEQ/L (21.0-32.0); BLOOD UREA NITROGEN 9 MG/DL (7-18); CHLORIDE 107 MEQ/L (98-107); GLOMERULAR FILTRATION RATE 123 ML/MIN (>89); POTASSIUM 3.9 MEQ/L (3.5-5.1); SODIUM (NA) 140 MEQ/L (136-145)
[2016-11-14 20:41] LABS: ALT (GPT) 204 U/L (12-78)
[2016-11-14 20:44] LABS: ALKALINE PHOSPHATASE 189 U/L (45-117); TOTAL BILIRUBIN ADULT 0.4 MG/DL (0.2-1.0)
[2016-11-14] MEDS ORDERED: SODIUM CHLOR 0.9% 1000 ML INJ 1,000 ML IV ONE ×2 (21:45)
--- NOTE | 2016-11-14 21:45 | PD ---
HPI Chief Complaint: Alcohol/Drug Intoxication Time Seen by Provider: 21:39 Travel History International Travel<30 days: No Contact w/Intl Traveler<30days: No Traveled to known affect area: No History of Present Illness HPI Patient is a 56-year-old male brought into the emergency department due to being intoxicated in public. Patient reports that he drank 10 beers today, he reports daily alcohol use. He denies any suicidal or homicidal ideations. He has no complaints of pain at this time. He reports a history of hypertension but is not on any medication. PFSH Past Medical History Arthritis: Yes Anxiety: Yes Depression: Yes Cardiac Catheterization: Yes High Cholesterol: Yes Chemotherapy: No Congestive Heart Failure: No Cirrhosis: Yes COPD: Yes Cerebrovascular Accident: Yes Coronary Artery Disease: Yes Diabetes: No Diminished Hearing: No Endocrine: No Gastrointestinal Disorders: Yes (ulcerative colitis) Genitourinary: No Heparin Induced Thrombocytopen: No Hypertension: Yes Immune Disorder: No Implanted Vascular Access Dvce: Yes Reproductive: No Immunizations Current: No Myocardial Infarction: Yes (JULY 2014) Seizures: Yes Past Surgical History Body Medical Devices: PINS IN HAND, PIN AND PLATES IN HIP PER PATIENT Cardiac Surgery: Yes (2 stents) Coronary Stent: Yes Other Surgery: Yes (lt hip, rt hand, lt hand) Social History Alcohol Use: Yes (daily..LAST DRINK 6 HOURS AGO ) Tobacco Use: Yes Substance Use: No Allergies-Medications (Allergen,Severity, Reaction): Coded Allergies: *MDRO Multi-Drug Resistant Organism (Verified Adverse Reaction, Unknown, ) MRSA leg wound 04/2015 MRSA PCR (nares) negative - 10/15/15 & 10/19/15 Cleared per Infection Control Morphine (Verified Adverse Reaction, Unknown, GI UPSET, 10/19/16) Reported Meds & Prescriptions Reported Meds & Active Scripts Active No Active Prescriptions or Reported Medications Review of Systems ROS Limitations: Intoxication Except as stated in HPI: all other systems reviewed are Neg Physical Exam Narrative GENERAL: Thin, well-developed, intoxicated appearing, disheveled male. Resting comfortably in no acute distress SKIN: Warm and dry. HEAD: Atraumatic. Normocephalic. EYES: Pupils equal and round. No scleral icterus. No injection or drainage. ENT: No nasal bleeding or discharge. Mucous membranes pink and moist. NECK: Trachea midline. No JVD. CARDIOVASCULAR: Regular rate and rhythm. RESPIRATORY: No accessory muscle use. Clear to auscultation. Breath sounds equal bilaterally. GASTROINTESTINAL: Abdomen soft, non-tender, nondistended. Hepatic and splenic margins not palpable. MUSCULOSKELETAL: Extremities without clubbing, cyanosis, or edema. No obvious deformities. NEUROLOGICAL: Awake and alert. No obvious cranial nerve deficits. Motor grossly within normal limits. Five out of 5 muscle strength in the arms and legs. Normal speech. PSYCHIATRIC: Appropriate mood and affect; insight and judgment impaired. Data Data Last Documented VS Vital Signs Date Time Temp Pulse Resp B/P Pulse Ox O2 Delivery O2 Flow Rate FiO2 11/15/16 06:00 71 15 142/68 94 11/14/16 22:10 Room Air 11/14/16 17:15 98.4 Orders Comprehensive Metabolic Panel (11/14/16 19:09) Alcohol (Ethanol) (11/14/16 19:09) Iv Access Insert/Monitor (11/14/16 21:43) Sodium Chlor 0.9% 1000 Ml Inj (Ns 1000 M (11/14/16 21:45) Sodium Chlor 0.9% 1000 Ml Inj (Ns 1000 M (11/14/16 21:45) Labs Laboratory Tests Test 11/14/16 19:42 Sodium Level 140 MEQ/L Potassium Level 3.9 MEQ/L Chloride Level 107 MEQ/L Carbon Dioxide Level 25.5 MEQ/L Anion Gap 8 MEQ/L Blood Urea Nitrogen 9 MG/DL Creatinine 0.67 MG/DL Estimat Glomerular Filtration 123 ML/MIN Rate Random Glucose 87 MG/DL Calcium Level 8.0 MG/DL Total Bilirubin 0.4 MG/DL Aspartate Amino Transf 211 U/L (AST/SGOT) Alanine Aminotransferase 204 U/L (ALT/SGPT) Alkaline Phosphatase 189 U/L Total Protein 7.8 GM/DL Albumin 3.8 GM/DL Ethyl Alcohol Level 361 MG/DL MDM Medical Decision Making Medical Screen Exam Complete: Yes Emergency Medical Condition: Yes Interpretation(s) Laboratory Tests Test 11/14/16 19:42 Sodium Level 140 MEQ/L Potassium Level 3.9 MEQ/L Chloride Level 107 MEQ/L Carbon Dioxide Level 25.5 MEQ/L Anion Gap 8 MEQ/L Blood Urea Nitrogen 9 MG/DL Creatinine 0.67 MG/DL Estimat Glomerular Filtration 123 ML/MIN Rate Random Glucose 87 MG/DL Calcium Level 8.0 MG/DL Total Bilirubin 0.4 MG/DL Aspartate Amino Transf 211 U/L (AST/SGOT) Alanine Aminotransferase 204 U/L (ALT/SGPT) Alkaline Phosphatase 189 U/L Total Protein 7.8 GM/DL Albumin 3.8 GM/DL Ethyl Alcohol Level 361 MG/DL Vital Signs Date Time Temp Pulse Resp B/P Pulse Ox O2 Delivery O2 Flow Rate FiO2 11/14/16 17:15 98.4 88 14 112/68 93 Differential Diagnosis Acute intoxication versus electrolyte abnormality versus substance abuse versus mood disorder versus other Narrative Course Patient is a 56-year-old male brought into the emergency department under [facility] s act for public intoxication. Patient is a physical complaints at this time. Labs reviewed alcohol level is 361, chemistry with transaminitis. Patient has a history of the same. Will obtain IV access, IV fluids ordered. Patient will be allowed to sleep it off, when he is clinically sober, can demonstrate safe ambulation, is alert and oriented he will be discharged from the emergency department. Diagnosis Primary Impression: Alcohol dependence with intoxication Qualified Code: F10.220 - Alcohol dependence with uncomplicated intoxication Additional Impression: Transaminitis Referrals: [facility] Patient Instructions: Abuse of Alcohol (ED), Alcohol Intoxication (DC), General Instructions Additional Instructions: Follow-up at [facility] Avoid excessive intake of alcohol Return to emergency department for any new or worsening symptoms Med/Other Pt SpecificInfo: No Change to Meds Scripts No Active Prescriptions or Reported Meds Disposition: 01 DISCHARGE HOME Condition: Stable Griselda Alonzo Nov 14, 2016 21:45
[2016-11-14 22:10] VITALS: BP 162/75; PULSE 78; RESP 14; O2SAT 94
[2016-11-15 06:00] VITALS: BP 142/68
== END 2016-11-15 06:00 | disposition home or self-care (01) ==
LOC: NEDAMB 17:10
DX: F10.220 Alcohol dependence with intoxication, uncomplicated (principal); R74.0 Nonspecific elevation of levels of transaminase and lactic acid dehydrogenase [LDH]; I10 Essential (primary) hypertension; E78.00 Pure hypercholesterolemia, unspecified; I25.2 Old myocardial infarction; Z72.0 Tobacco use; Z87.39 Personal history of other diseases of the musculoskeletal system and connective tissue; Z86.59 Personal history of other mental and behavioral disorders; Z86.79 Personal history of other diseases of the circulatory system; Z87.19 Personal history of other diseases of the digestive system; Z87.09 Personal history of other diseases of the respiratory system; Z86.69 Personal history of other diseases of the nervous system and sense organs
CPT/HCPCS: 80053; 80307; 99284; J7030

== ENCOUNTER 2016-11-17 22:44 | Emergency (ER) | payer OTHER ==
[~2016-11-17] VITALS: Ht 162.6 cm; Wt 68.2 kg
[2016-11-17 22:59] VITALS: BP 108/63; PULSE 76; RESP 20; TEMP 98.2; O2SAT 95
[2016-11-17 23:00] VITALS: BP 108/63; PULSE 64; O2SAT 95
[2016-11-17] MEDS ORDERED: DILA30CA PO (23:13)
[2016-11-17] MEDS ORDERED: FLUO-1 PO (23:13)
[2016-11-17] MEDS ORDERED: ACETAMINOPHEN 500 MG CPLT PO ONE (23:45)
[2016-11-17] MEDS ORDERED: IBUPROFEN 400 MG TAB PO ONE (23:45)
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
[2016-11-18 00:40] VITALS: BP 112/72; PULSE 79; RESP 18; O2SAT 93
[2016-11-18 01:00] VITALS: BP 107/64; PULSE 63; RESP 18; O2SAT 91
--- NOTE | 2016-11-19 10:57 | EKG ---
Date Performed: 11/17/2016 Time Performed: 23:04:01 PTAGE: 56 years EKG: Sinus rhythm LOW QRS VOLTAGE IN EXTREMITY LEADS POSSIBLE SEPTAL MYOCARDIAL INFARCTION ABNORMAL ECG PREVIOUS TRACING : 12/31/2015 12.14 DOCTOR: Saúl Livingston Interpretating Date/Time 11/19/2016 10:53:43
== END 2016-11-18 01:31 | disposition home or self-care (01) ==
LOC: NEPE 22:44
DX: S00.81XA Abrasion of other part of head, initial encounter (principal); S09.90XA Unspecified injury of head, initial encounter; F10.229 Alcohol dependence with intoxication, unspecified; R94.31 Abnormal electrocardiogram [ECG] [EKG]; I10 Essential (primary) hypertension; K74.60 Unspecified cirrhosis of liver; Y09 Assault by unspecified means; Z72.0 Tobacco use; Z87.09 Personal history of other diseases of the respiratory system; Z87.19 Personal history of other diseases of the digestive system; Z86.79 Personal history of other diseases of the circulatory system
CPT/HCPCS: 70450; 70486; 72125; 93005; 99284

== ENCOUNTER 2017-02-24 11:13 | Emergency (ER) | payer OTHER ==
[~2017-02-24] VITALS: Ht 182.9 cm; Wt 75.0 kg
[~2017-02-24 11:13] MED LIST changes: +DILA30CA PO; +FLUO-1 PO; -TYLE325T PO; -ZOFR4TAB3 SL
[2017-02-24 11:18] VITALS: BP 108/74; PULSE 86; RESP 16; TEMP 98; O2SAT 100
--- NOTE | 2017-02-24 12:30 | PD ---
HPI Chief Complaint: Injury Time Seen by Provider: 12:14 Travel History International Travel<30 days: No Contact w/Intl Traveler<30days: No Traveled to known affect area: No History of Present Illness HPI 56-year-old male presents to the emergency room for evaluation of left ankle and foot pain after trip and fall last night. Patient states he stepped in a hole in the ground while walking down the road and twisted his ankle. He does not remember hearing a pop. States later on in the night he woke up because of continuous, throbbing pain. States it is mostly in the left lateral ankle but also feels it in the foot. Reports significant pain with any range of motion of the ankle or foot. Reports associated paresthesias. Denies significant swelling. He has not taken anything for symptoms. Patient is supposed to take Dilantin for seizures but he is noncompliant. States he is a chronic alcoholic and last drank this morning. Denies any other medical problems. PFSH Past Medical History Arthritis: Yes Anxiety: Yes Depression: Yes Cardiac Catheterization: Yes High Cholesterol: Yes Chemotherapy: No Congestive Heart Failure: No Cirrhosis: Yes COPD: Yes Cerebrovascular Accident: Yes Coronary Artery Disease: Yes Diabetes: No Diminished Hearing: No Endocrine: No Gastrointestinal Disorders: Yes (ulcerative colitis) Genitourinary: No Heparin Induced Thrombocytopen: No Hypertension: Yes Immune Disorder: No Implanted Vascular Access Dvce: Yes Reproductive: No Immunizations Current: No Myocardial Infarction: Yes (JULY 2014) Seizures: Yes (r/t etoh withdrawls really bad) Past Surgical History Body Medical Devices: PINS IN HAND, PIN AND PLATES IN HIP PER PATIENT Cardiac Surgery: Yes (2 stents) Coronary Stent: Yes Other Surgery: Yes (lt hip, rt hand, lt hand) Social History Alcohol Use: Yes (daily/last drink@3hrs ago ) Tobacco Use: Yes (cigars) Substance Use: No Allergies-Medications (Allergen,Severity, Reaction): Coded Allergies: *MDRO Multi-Drug Resistant Organism (Verified Adverse Reaction, Unknown, ) MRSA leg wound 04/2015 MRSA PCR (nares) negative - 10/15/15 & 10/19/15 Cleared per Infection Control morphine (Unverified Adverse Reaction, Unknown, GI UPSET, 02/24/17) Reported Meds & Prescriptions Reported Meds & Active Scripts Active Reported Dilantin (Phenytoin Extended) 30 Mg Cap Mg PO Review of Systems Except as stated in HPI: all other systems reviewed are Neg Physical Exam Narrative GENERAL: Well-nourished, well-developed male in no acute distress. Afebrile. SKIN: Focused skin assessment warm/dry. No erythema or ecchymosis. HEAD: Normocephalic. EYES: No scleral icterus. No injection or drainage. NECK: Supple, trachea midline. No JVD or lymphadenopathy. CARDIOVASCULAR: Regular rate and rhythm without murmurs, gallops, or rubs. RESPIRATORY: Breath sounds equal bilaterally. No accessory muscle use. MUSCULOSKELETAL: No cyanosis. Mild edema of the left lateral ankle and left foot. Bounding 2+ dorsalis pedis pulse. Limited range of motion of the foot and ankle secondary to pain. Less than 2 second capillary refill distally. Extreme tenderness to palpation of the midfoot and mild tenderness to palpation of the left lateral ankle. Data Data Last Documented VS Vital Signs Date Time Temp Pulse Resp B/P (MAP) Pulse Ox O2 Delivery O2 Flow Rate FiO2 02/24/17 11:18 98.0 86 16 108/74 (85) 100 Orders Orders Ankle, Complete ([id number]) (02/24/17 ) Foot, Complete ([id number]) (02/24/17 ) MDM Medical Decision Making Medical Screen Exam Complete: Yes Emergency Medical Condition: Yes Medical Record Reviewed: Yes Differential Diagnosis Sprain, strain, contusion, fracture Narrative Course 56-year-old male presents to the emergency room for evaluation of left ankle and foot pain and swelling after injury last night. Patient states he stepped in a hole and twisted his ankle. Since then he has developed constant, throbbing pain localized to the lateral malleolus and midfoot. Pain is worse with any range of motion or ambulation. Left lower extremity is neurovascularly intact with 2+ dorsalis pedis pulse. Limited range of motion because of pain. X-rays of the foot and ankle are negative. This is ankle sprain. Patient placed in a splint and discharged with crutches and orthopedic instructions. Unfortunately his options for pain management are limited because of chronic alcohol use. Told to follow-up with a primary care physician or return for worsening symptoms. He understands and agrees to plan. Diagnosis Primary Impression: Left ankle sprain Qualified Codes: S93.402A - Sprain of unspecified ligament of left ankle, initial encounter Referrals: Primary Care Physician Additional Instructions: Rest and drink plenty of fluids. Use crutches and splint consistently for the next 5 days then as needed for pain. Apply ice to the affected area for 20 minutes at a time, as needed for pain and swelling. Follow-up with a primary care physician. Return to the emergency room for worsening symptoms. Med/Other Pt SpecificInfo: Prescription(s) given Disposition: 01 DISCHARGE HOME Condition: Stable Cora Garrison Feb 24, 2017 12:30
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
== END 2017-02-24 14:11 | disposition home or self-care (01) ==
LOC: NEPK 11:13
DX: S93.402A Sprain of unspecified ligament of left ankle, initial encounter (principal); R20.2 Paresthesia of skin; I10 Essential (primary) hypertension; E78.00 Pure hypercholesterolemia, unspecified; K74.60 Unspecified cirrhosis of liver; I25.2 Old myocardial infarction; W17.2XXA Fall into hole, initial encounter; X50.1XXA Overexertion from prolonged static or awkward postures, initial encounter; Z72.0 Tobacco use; Z87.39 Personal history of other diseases of the musculoskeletal system and connective tissue; Z86.59 Personal history of other mental and behavioral disorders; Z86.79 Personal history of other diseases of the circulatory system; Z87.09 Personal history of other diseases of the respiratory system; Z87.19 Personal history of other diseases of the digestive system
CPT/HCPCS: 73610; 73630; 99283; E0113; L3260

== ENCOUNTER 2017-03-16 10:57 | Emergency (ER) | payer OTHER ==
[~2017-03-16] VITALS: Ht 165.1 cm; Wt 63.6 kg
[~2017-03-16 10:57] MED LIST changes: -FLUO-1 PO
[2017-03-16 11:18] VITALS: BP 126/84; PULSE 73; RESP 26; TEMP 98.6; O2SAT 96
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
--- NOTE | 2017-03-16 12:11 | RADRPT ---
EXAM DATE/TIME: 03/16/2017 11:34 [facility] COMPARISON: No previous studies available for comparison. INDICATIONS : Right shoulder pain, fell MEDICAL HISTORY : Stroke. Seizures. Hypertension, previous left clavicle fracture SURGICAL HISTORY : None. ENCOUNTER: Initial ACUITY: 1 day PAIN SCORE: 0/10 LOCATION: Left shoulder FINDINGS: 4 views of the left shoulder demonstrate a displaced fracture of the left midclavicle. Proximal humer us is intact. Acromioclavicular joint and coracoclavicular distance is within normal limits. No dislo cation is present. No soft tissue abnormality is identified. CONCLUSION: Displaced fracture of the left midclavicle. No other acute finding is identified. Cornelio Jefferson MD on March 16, 2017 at 12:08 Board Certified Radiologist. This report was verified electronically.
--- NOTE | 2017-03-16 12:17 | RADRPT ---
EXAM DATE/TIME: 03/16/2017 11:50 [facility] COMPARISON: CT CERVICAL SPINE W/O CONTRAST, November 17, 2016, 23:59. INDICATIONS : Trauma, fall. Neck pain. RADIATION DOSE: 21.02 CTDIvol (mGy) MEDICAL HISTORY : Cardiovascular disease. Hypertension. Chronic obstructive pulmonary disease. SURGICAL HISTORY : None. ENCOUNTER: Initial ACUITY: 1 day PAIN SCALE: 0/10 LOCATION: neck TECHNIQUE: Volumetric scanning of the cervical spine was performed. Multiplanar reconstructions in the sagittal, coronal and oblique axial planes were performed. Using automated exposure control and adjustment o f the mA and/or kV according to patient size, radiation dose was kept as low as reasonably achievable to obtain optimal diagnostic quality images. DICOM format image data is available electronically f or review and comparison. FINDINGS: There is normal sagittal spine alignment of the cervical spine. No anterolisthesis or retrolisthesis is present. The atlantoaxial relationship is within normal limits. There is no prevertebral soft tiss ue swelling present. No fracture or dislocation is identified. No disc herniation is visualized in th e upper cervical spine. There is centrilobular emphysematous change in the lung apices. Moderate to severe atherosclerotic ca lcification is present within the carotid bulbs bilaterally. Otherwise, the visualized portions of th e posterior fossa, paraspinous soft tissues, and upper lung zones demonstrate no acute abnormality. CONCLUSION: No acute cervical spine abnormality is identified. Cornelio Jefferson MD on March 16, 2017 at 12:11 Board Certified Radiologist. This report was verified electronically.
[2017-03-16] MEDS ORDERED: IBUPROFEN 800 MG TAB PO ONE (14:30)
--- NOTE | 2017-03-16 14:45 | PD ---
HPI Chief Complaint: Musculoskeletal Complaint Time Seen by Provider: 14:25 Travel History International Travel<30 days: No Contact w/Intl Traveler<30days: No Traveled to known affect area: No History of Present Illness HPI 56-year-old male presents to emergency department after slip and fall. States he was walking and tripped over an extension cord and fell hitting his head and left side of the body. States that his left clavicle area has moderate pain that increases with movement, decreases with rest. He also has increased pain with range of motion of the shoulder but points to the clavicle in regards to the pain. States he did hit his head but does not specify where he hit. States he also has an aching headache. Denies radiation of pain of his left arm. Denies LOC, dizziness, blurred vision. Denies fever, chills, chest pain, shortness of breath, abdominal pain, weakness of the extremities. Patient drinks 4-6 4 packs of beer daily. States he is homeless. Patient has not taken any medication to relieve his pain at this time. He has an old injury to his left foot. PFSH Past Medical History Arthritis: Yes Anxiety: Yes Depression: Yes Cardiac Catheterization: Yes Cardiovascular Problems: Yes (STENTS) High Cholesterol: Yes Chemotherapy: No Congestive Heart Failure: No Cirrhosis: Yes COPD: Yes Cerebrovascular Accident: Yes Coronary Artery Disease: Yes Diabetes: No Diminished Hearing: No Endocrine: No Gastrointestinal Disorders: Yes (ulcerative colitis) Genitourinary: No Heparin Induced Thrombocytopen: No Hypertension: Yes Immune Disorder: No Implanted Vascular Access Dvce: Yes Reproductive: No Respiratory: Yes Immunizations Current: No Myocardial Infarction: Yes (JULY 2014) Seizures: Yes (r/t etoh withdrawls really bad) Past Surgical History Body Medical Devices: PINS IN HAND, PIN AND PLATES IN HIP PER PATIENT Cardiac Surgery: Yes (2 stents) Coronary Stent: Yes Other Surgery: Yes (lt hip, rt hand, lt hand) Social History Alcohol Use: Yes (daily/last drink@3hrs ago ) Tobacco Use: Yes (cigars) Substance Use: No Allergies-Medications (Allergen,Severity, Reaction): Coded Allergies: *MDRO Multi-Drug Resistant Organism (Verified Adverse Reaction, Unknown, ) MRSA leg wound 04/2015 MRSA PCR (nares) negative - 10/15/15 & 10/19/15 Cleared per Infection Control morphine (Unverified Adverse Reaction, Unknown, GI UPSET, 02/24/17) Reported Meds & Prescriptions Reported Meds & Active Scripts Active Reported Dilantin (Phenytoin Extended) 30 Mg Cap Mg PO Review of Systems Except as stated in HPI: all other systems reviewed are Neg Physical Exam Narrative GENERAL: Well developed well nourished SKIN: Focused skin assessment warm/dry. HEAD: Atraumatic. Normocephalic. EYES: Pupils equal and round. No scleral icterus. No injection or drainage. ENT: No nasal bleeding or discharge. Mucous membranes pink and moist. NECK: Trachea midline. No JVD. No midline tenderness. CARDIOVASCULAR: Regular rate and rhythm. No murmur appreciated. RESPIRATORY: No accessory muscle use. Clear to auscultation. Breath sounds equal bilaterally. MUSCULOSKELETAL: No obvious deformities. No clubbing. No cyanosis. No edema. Left clavicle- ecchymosis over middle clavicle without tenting. TTP. Neurovascular intact NEUROLOGICAL: Awake and alert. No obvious cranial nerve deficits. Motor grossly within normal limits. Normal speech. PSYCHIATRIC: Appropriate mood and affect; insight and judgment normal. Data Data Last Documented VS Vital Signs Date Time Temp Pulse Resp B/P (MAP) Pulse Ox O2 Delivery O2 Flow Rate FiO2 03/16/17 16:12 20 03/16/17 15:31 03/16/17 11:[address] Brain W/O Iv Contrast(Rout) (03/16/17 ) Ct Cerv Spine W/O Contrast (03/16/17 ) Shoulder, Complete (>2vws) (03/16/17 ) Clavicle (03/16/17 ) Ibuprofen (Motrin) (03/16/17 14:30) Ed Discharge Order (03/16/17 15:03) MDM Medical Decision Making Medical Screen Exam Complete: Yes Emergency Medical Condition: Yes Differential Diagnosis Clavicular fracture versus contusion versus abrasion Head contusion versus fracture versus abrasion Narrative Course 56-year-old male presents to emergency department after slip and fall. States he was walking and tripped over an extension cord and fell hitting his head and left side of the body. States that his left clavicle area has moderate pain that increases with movement, decreases with rest. He also has increased pain with range of motion of the shoulder but points to the clavicle in regards to the pain. States he did hit his head but does not specify where he hit. States he also has an aching headache. Denies radiation of pain of his left arm. Denies LOC, dizziness, blurred vision. Denies fever, chills, chest pain, shortness of breath, abdominal pain, weakness of the extremities. Patient drinks 4-6 4 packs of beer daily. States he is homeless. Patient has not taken any medication to relieve his pain at this time. He has an old injury to his left foot. Vital signs stable Imaging study: left clavicular fracture. Head, cervical spine, shoulder imaging studies unremarkable. Patient advised to follow-up with orthopedics Tylenol or Motrin per package instructions Patient to return to primary care physician within 2 days. Return to the ED for worsening symptoms. Diagnosis Primary Impression: Clavicle fracture Qualified Codes: S42.002A - Fracture of unspecified part of left clavicle, initial encounter for closed fracture Additional Impression: Head contusion Qualified Codes: S00.83XA - Contusion of other part of head, initial encounter Referrals: Orthopedist Additional Instructions: Follow-up with orthopedist within 2 days. Follow up with your primary care physician within 2 days The pain worsens or persists return to the emergency department Disposition: 01 DISCHARGE HOME Condition: Stable Radha Meyer Mar 16, 2017 14:45
[2017-03-16 16:12] VITALS: RESP 20
== END 2017-03-16 16:11 | disposition home or self-care (01) ==
LOC: NEPK 10:57
DX: S42.002A Fracture of unspecified part of left clavicle, initial encounter for closed fracture (principal); S00.83XA Contusion of other part of head, initial encounter; K74.60 Unspecified cirrhosis of liver; I10 Essential (primary) hypertension; J44.9 Chronic obstructive pulmonary disease, unspecified; W18.09XA Striking against other object with subsequent fall, initial encounter; Y93.01 Activity, walking, marching and hiking; Z59.0 Homelessness; Z72.0 Tobacco use
CPT/HCPCS: 70450; 72125; 73000; 73030; 99285

== ENCOUNTER 2017-05-10 15:18 | Emergency (ER) | payer OTHER ==
[~2017-05-10] VITALS: Ht 175.3 cm; Wt 65.0 kg
[2017-05-10 15:30] VITALS: BP 127/76; PULSE 98; RESP 18; TEMP 98.2; O2SAT 98
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
--- NOTE | 2017-05-10 16:03 | PD ---
Physical Exam Date Seen by Provider: May 10, 2017 Narrative This patient presents complaining with left clavicular and rib pain. Data Data Last Documented VS Vital Signs Date Time Temp Pulse Resp B/P (MAP) Pulse Ox O2 Delivery O2 Flow Rate FiO2 05/10/17 15:30 98.2 98 18 127/76 (93) 98 Orders Orders Ribs, Uni (W/Exp Cxr-Min 3vw) (05/10/17 15:43) Clavicle (05/10/17 15:43) Ice/Cold Pack (05/10/17 15:43) MDM Supervised Visit with [facility]G: Yes Narrative Course I, Dr. Collins, have reviewed the advance practice practitioner's documentation and am in agreement, met with the patient face to face, made the diagnosis, and the medical decision making was done by me. *My assessment and Findings: Patient is awake and alert and in no distress. Please see Geoff Jacob PA-C's note for results of laboratory and radiographic evaluation, ED course, final diagnosis and disposition Condition: Stable Marielena Collins MD May 10, 2017 16:03
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
[2017-05-10] MEDS ORDERED: KETOROLAC TROMETHAMINE 60 MG/2 ML (IM) VIAL IM ONE (16:45)
[2017-05-10] MEDS ORDERED: MAPA500T13 PO (16:49)
[2017-05-10] MEDS ORDERED: IBUP-232 PO (16:49)
== END 2017-05-10 17:52 | disposition home or self-care (01) ==
LOC: NEPD 15:18
DX: S42.025A Nondisplaced fracture of shaft of left clavicle, initial encounter for closed fracture (principal); F10.220 Alcohol dependence with intoxication, uncomplicated; K74.60 Unspecified cirrhosis of liver; J44.9 Chronic obstructive pulmonary disease, unspecified; I10 Essential (primary) hypertension; Z72.0 Tobacco use
CPT/HCPCS: 71101; 73000; 96372; 99284; J1885

== ENCOUNTER 2017-05-16 16:50 | Emergency (ER) | payer OTHER ==
[~2017-05-16 16:50] MED LIST changes: +IBUP-232 PO; +MAPA500T13 PO
[2017-05-16 16:52] VITALS: BP 135/74; PULSE 88; RESP 16; TEMP 97.7; O2SAT 95
--- NOTE | 2017-05-23 22:26 | PD ---
HPI Chief Complaint: Alcohol/Drug Intoxication Time Seen by Provider: 17:09 Travel History International Travel<30 days: No Contact w/Intl Traveler<30days: No Traveled to known affect area: No History of Present Illness HPI Pt it is a 56-year-old male presenting to the emergency room for evaluation of collarbone pain. He states that his left collarbone hurts, he denies any actual injury. He presents appearing intoxicated, he reports drinking 8 beers today in that he drinks beer on a daily basis. He states he is depressed but denies suicidality. Patient rates his pain a 5 out of 10 states it is sore. He has no other complaints at this time. He states that there are no alleviating factors, pain as exacerbated with movement. Onset with gradual, it started several weeks prior to arrival today. PFSH Past Medical History Arthritis: Yes Anxiety: Yes Depression: Yes Cardiac Catheterization: Yes Cardiovascular Problems: Yes High Cholesterol: Yes Chemotherapy: No Congestive Heart Failure: No Cirrhosis: Yes COPD: Yes Cerebrovascular Accident: Yes Coronary Artery Disease: Yes Diabetes: No Diminished Hearing: No Endocrine: No Gastrointestinal Disorders: Yes Genitourinary: No Heparin Induced Thrombocytopen: No Hypertension: Yes Immune Disorder: No Implanted Vascular Access Dvce: Yes Reproductive: No Respiratory: Yes Immunizations Current: No Myocardial Infarction: Yes Seizures: Yes Past Surgical History Body Medical Devices: PINS IN HAND, PIN AND PLATES IN HIP PER PATIENT Cardiac Surgery: Yes Coronary Stent: Yes Other Surgery: Yes (lt hip, rt hand, lt hand) Social History Alcohol Use: Yes (daily/last drink@3hrs ago ) Tobacco Use: Yes (cigars) Substance Use: No Allergies-Medications (Allergen,Severity, Reaction): Coded Allergies: *MDRO Multi-Drug Resistant Organism (Verified Adverse Reaction, Unknown, ) MRSA leg wound 04/2015 MRSA PCR (nares) negative - 10/15/15 & 10/19/15 Cleared per Infection Control morphine (Unverified Adverse Reaction, Unknown, GI UPSET, 05/10/17) Reported Meds & Prescriptions Reported Meds & Active Scripts Active Mapap Extra Strength (Acetaminophen) 500 Mg Tab 500 Mg PO Q4-6H PRN Ibuprofen 600 Mg Tab 600 Mg PO Q8H PRN Reported Dilantin (Phenytoin Extended) 30 Mg Cap Mg PO Review of Systems Except as stated in HPI: all other systems reviewed are Neg Musculoskeletal: Positive: Pain Psychiatric: Positive: Substance Abuse Physical Exam Narrative GENERAL: Well-developed, intoxicated appearing male. SKIN: Warm and dry. HEAD: Normocephalic. EYES: No scleral icterus. No injection or drainage. CARDIOVASCULAR: Regular rate RESPIRATORY: No accessory muscle use. MDM Medical Decision Making Medical Screen Exam Complete: Yes Emergency Medical Condition: Yes Differential Diagnosis Sprain versus strain versus fracture versus intoxication versus other Narrative Course Vital signs reviewed in are stable. Patient presented for evaluation of collarbone pain, there with no injury or trauma. He also appears intoxicated in admits to drinking 8 beers today. Patient as awaiting bed placement. Patient with called to be bedded, he was not longer found in the emergency department. Patient left AMA. Diagnosis Primary Impression: Left against medical advice Disposition: 07 AGAINST MEDICAL ADVICE Griselda Alonzo May 23, 2017 22:26
== END 2017-05-17 03:10 | disposition left against medical advice (07) ==
LOC: NED 16:50
DX: F10.229 Alcohol dependence with intoxication, unspecified (principal); E78.00 Pure hypercholesterolemia, unspecified; J44.9 Chronic obstructive pulmonary disease, unspecified; I10 Essential (primary) hypertension; I25.10 Atherosclerotic heart disease of native coronary artery without angina pectoris; K74.60 Unspecified cirrhosis of liver; F32.9 Major depressive disorder, single episode, unspecified; I25.2 Old myocardial infarction; Z86.73 Personal history of transient ischemic attack (TIA), and cerebral infarction without residual deficits; Z95.5 Presence of coronary angioplasty implant and graft; Z72.0 Tobacco use
CPT/HCPCS: 99281

== ENCOUNTER 2017-06-30 07:51 | Emergency (ER) | payer OTHER ==
[~2017-06-30] VITALS: Ht 165.1 cm; Wt 60.0 kg
[2017-06-30 08:00] VITALS: BP 127/57; PULSE 54; RESP 17; TEMP 97.6; O2SAT 97
--- NOTE | 2017-06-30 08:12 | PD ---
HPI Chief Complaint: Alcohol/Drug Intoxication Time Seen by Provider: 08:03 Travel History International Travel<30 days: No Contact w/Intl Traveler<30days: No Traveled to known affect area: No History of Present Illness HPI 56-year-old male presents by ambulance for alcohol intoxication. He states that he hit his head and his arm. He denies other complaints but history is significantly limited. He states he drank too much. PFSH Past Medical History Arthritis: Yes Anxiety: Yes Depression: Yes Cardiac Catheterization: Yes Cardiovascular Problems: Yes High Cholesterol: Yes Chemotherapy: No Congestive Heart Failure: No Cirrhosis: Yes COPD: Yes Cerebrovascular Accident: Yes Coronary Artery Disease: Yes Diabetes: No Diminished Hearing: No Endocrine: No Gastrointestinal Disorders: Yes Genitourinary: No Heparin Induced Thrombocytopen: No Hypertension: Yes Immune Disorder: No Implanted Vascular Access Dvce: Yes Reproductive: No Respiratory: Yes Immunizations Current: No Myocardial Infarction: Yes Seizures: Yes Past Surgical History Body Medical Devices: PINS IN HAND, PIN AND PLATES IN HIP PER PATIENT Cardiac Surgery: Yes Coronary Stent: Yes Other Surgery: Yes (lt hip, rt hand, lt hand) Social History Alcohol Use: Yes (daily/last drink@3hrs ago ) Tobacco Use: Yes (cigars) Substance Use: No Allergies-Medications (Allergen,Severity, Reaction): Coded Allergies: *MDRO Multi-Drug Resistant Organism (Verified Adverse Reaction, Unknown, ) MRSA leg wound 04/2015 MRSA PCR (nares) negative - 10/15/15 & 10/19/15 Cleared per Infection Control morphine (Unverified Adverse Reaction, Unknown, GI UPSET, 06/30/17) Reported Meds & Prescriptions Reported Meds & Active Scripts Active No Active Prescriptions or Reported Medications Review of Systems ROS Limitations: Intoxication Physical Exam Exam Limitations: Intoxication Narrative GENERAL: 56-year-old male who is intoxicated SKIN: Abrasion to right elbow HEAD: Atraumatic. Normocephalic. EYES: Pupils equal and round. No scleral icterus. No injection or drainage. ENT: No nasal bleeding or discharge. Mucous membranes pink and moist. NECK: Trachea midline. No pain with range of motion CARDIOVASCULAR: Regular rate and rhythm. RESPIRATORY: No accessory muscle use. Clear to auscultation. Breath sounds equal bilaterally. GASTROINTESTINAL: Abdomen soft, non-tender, nondistended MUSCULOSKELETAL: No obvious deformities. No edema. NEUROLOGICAL: Awake. No obvious cranial nerve deficits. Motor grossly within normal limits. Slurred speech. Data Data Last Documented VS Vital Signs Date Time Temp Pulse Resp B/P (MAP) Pulse Ox O2 Delivery O2 Flow Rate FiO2 06/30/17 16:07 06/30/17 15:57 72 18 98 06/30/17 08:00 97.6 Room Air Orders Orders Elbow, Complete (4 Vws) (06/30/17 ) Ct Brain W/O Iv Contrast(Rout) (06/30/17 ) Complete Blood Count With Diff (06/30/17 08:04) Basic Metabolic Panel (Bmp) (06/30/17 08:04) Act Partial Throm Time (Ptt) (06/30/17 08:04) Prothrombin Time / Inr (Pt) (06/30/17 08:04) Iv Access Insert/Monitor (06/30/17 08:04) Alcohol (Ethanol) (06/30/17 08:04) Ecg Monitoring (06/30/17 11:29) Oximetry (06/30/17 11:29) Sodium Chlor 0.9% 1000 Ml Inj (Ns 1000 M (06/30/17 13:45) Labs Laboratory Tests Test 06/30/17 08:35 White Blood Count 4.4 TH/MM3 Red Blood Count 4.16 MIL/MM3 Hemoglobin 13.6 GM/DL Hematocrit 39.6 % Mean Corpuscular Volume 95.3 FL Mean Corpuscular Hemoglobin 32.6 PG Mean Corpuscular Hemoglobin Concent 34.2 % Red Cell Distribution Width 13.7 % Platelet Count 138 TH/MM3 Mean Platelet Volume 7.2 FL Neutrophils (%) (Auto) 45.9 % Lymphocytes (%) (Auto) 36.7 % Monocytes (%) (Auto) 9.0 % Eosinophils (%) (Auto) 7.5 % Basophils (%) (Auto) 0.9 % Neutrophils # (Auto) 2.0 TH/MM3 Lymphocytes # (Auto) 1.6 TH/MM3 Monocytes # (Auto) 0.4 TH/MM3 Eosinophils # (Auto) 0.3 TH/MM3 Basophils # (Auto) 0.0 TH/MM3 CBC Comment DIFF FINAL Differential Comment Prothrombin Time 10.4 SEC Prothromb Time International Ratio 1.0 RATIO Activated Partial Thromboplast Time 25.9 SEC Blood Urea Nitrogen 6 MG/DL Creatinine 0.63 MG/DL Random Glucose 98 MG/DL Calcium Level 8.2 MG/DL Sodium Level 140 MEQ/L Potassium Level 4.0 MEQ/L Chloride Level 106 MEQ/L Carbon Dioxide Level 25.5 MEQ/L Anion Gap 9 MEQ/L Estimat Glomerular Filtration Rate 132 ML/MIN Ethyl Alcohol Level 456 MG/DL MDM Medical Decision Making Medical Screen Exam Complete: Yes Emergency Medical Condition: Yes Medical Record Reviewed: Yes (pmh confirmed) Interpretation(s) CBC & BMP Diagram 06/30/17 08:35 Calcium Level 8.2 L Last [address] 06/30/17 0000 Signed Impressions: Service Date/Time: Friday, June 30, 2017 08:22 - CONCLUSION: 1. No acute cranial abnormality identified. Joseph Clemens MD Elbow X-Ray 06/30/17 0000 Signed Impressions: Service Date/Time: Friday, June 30, 2017 08:10 - CONCLUSION: 1. No definite fracture identified. Joseph Clemens MD Differential Diagnosis Intercranial injury, fracture, intoxication Narrative Course We will check blood work, CT brain and right elbow x-ray and reevaluate 1600 patient with steady gait and clear speech, vitals improved, now states he has left sided numbness to his arm and leg, I informed patient that he needs to stay in the hospital for further workup of the possible stroke given he is having numbness on one entire side of his body and he states he cannot stay. He is now clinically sober. Nurse at bedside. He elects to leave [place] and is alert and oriented to make this decision. He understands risks include stroke, [place], . Diagnosis Primary Impression: Alcohol intoxication Qualified Codes: F10.920 - Alcohol use, unspecified with intoxication, uncomplicated Additional Impression: Left sided numbness Patient Instructions: General Instructions Scripts No Active Prescriptions or Reported Meds Disposition: 07 AGAINST MEDICAL ADVICE Condition: Stable Manda Ibarra MD Jun 30, 2017 08:12
--- NOTE | 2017-06-30 08:31 | RADRPT ---
EXAM DATE/TIME: 06/30/2017 08:10 [facility] COMPARISON: RIBS LEFT(W PA CXR MIN 3VWS), May 10, 2017, 16:04. INDICATIONS : Possible fall, lacerations on posterior surface of right elbow MEDICAL HISTORY : ETOH SURGICAL HISTORY : None. ENCOUNTER: Initial ACUITY: 1 day PAIN SCORE: Non-responsive. LOCATION: Right elbow FINDINGS: The examination demonstrates mild arthritic changes within the elbow. There is no significant joint e ffusion. No definite fracture is seen. CONCLUSION: 1. No definite fracture identified. Joseph Clemens MD on June 30, 2017 at 8:28 Board Certified Radiologist. This report was verified electronically.
--- NOTE | 2017-06-30 08:35 | RADRPT ---
EXAM DATE/TIME: 06/30/2017 08:22 [facility] COMPARISON: CT CERVICAL SPINE W/O CONTRAST, March 16, 2017, 11:50. INDICATIONS : Fall and hit head RADIATION DOSE: 43.80 CTDIvol (mGy) MEDICAL HISTORY : Cardiovascular disease. Cerebrovascular disease. Chronic obstructive pulmonary disease.Hypertension SURGICAL HISTORY : None. ENCOUNTER: Initial ACUITY: 1 day PAIN SCALE: 0/10 LOCATION: cranial TECHNIQUE: Multiple contiguous axial images were obtained of the head. Using automated exposure control and adj ustment of the mA and/or kV according to patient size, radiation dose was kept as low as reasonably a chievable to obtain optimal diagnostic quality images. DICOM format image data is available electro nically for review and comparison. FINDINGS: CEREBRUM: The ventricles are normal for age. No evidence of midline shift, mass lesion, hemorrhage or acute in farction. No extra-axial fluid collections are seen. POSTERIOR FOSSA: The cerebellum and brainstem are intact. The 4th ventricle is midline. The cerebellopontine angle i s unremarkable. EXTRACRANIAL: The visualized portion of the orbits is intact. SKULL: The calvaria is intact. No evidence of skull fracture. CONCLUSION: 1. No acute cranial abnormality identified. Joseph Cleemns MD on June 30, 2017 at 8:32 Board Certified Radiologist. This report was verified electronically.
[2017-06-30 09:05] LABS: BASOPHIL % 0.9 % (0.0-2.0); EOSINOPHIL # 0.3 TH/MM3 (0-0.4); EOSINOPHIL % 7.5 % (0.0-4.0); HEMATOCRIT 39.6 % (39.0-51.0); HEMOGLOBIN 13.6 GM/DL (13.0-17.0); LYMPH % 36.7 % (9.0-44.0); LYMPHOCYTE # 1.6 TH/MM3 (1.0-4.8); MEAN CELL VOLUME 95.3 FL (80.0-100.0); MEAN CORPUSCULAR HEMOGLOBIN 32.6 PG (27.0-34.0); MEAN CORPUSCULAR HGB CONC 34.2 % (32.0-36.0); MEAN PLATELET VOLUME 7.2 FL (7.0-11.0); MONOCYTE # 0.4 TH/MM3 (0-0.9); NEUT % 45.9 % (16.0-70.0); PLATELET COUNT 138 TH/MM3 (150-450); RED BLOOD COUNT 4.16 MIL/MM3 (4.50-5.90); RED CELL DISTRIBUTION WIDTH 13.7 % (11.6-17.2); WHITE BLOOD COUNT 4.4 TH/MM3 (4.0-11.0)
[2017-06-30 09:16] LABS: PROTHROMBIN TIME - PATIENT 10.4 SEC (9.8-11.6)
[2017-06-30 09:19] LABS: BICARBONATE 25.5 MEQ/L (21.0-32.0); CALCIUM 8.2 MG/DL (8.5-10.1); CREATININE 0.63 MG/DL (0.60-1.30)
[2017-06-30 11:35] VITALS: BP 122/62; PULSE 88; RESP 18; O2SAT 100
[2017-06-30 11:49] VITALS: BP 122/62; PULSE 88; RESP 18; O2SAT 100
[2017-06-30 12:00] VITALS: BP 93/55; PULSE 54; RESP 17; O2SAT 100
[2017-06-30] MEDS ORDERED: SODIUM CHLOR 0.9% 1000 ML INJ 1,000 ML IV ONE (13:45)
[2017-06-30 15:57] VITALS: BP 115/62; PULSE 72; RESP 18; O2SAT 98
== END 2017-06-30 16:10 | disposition left against medical advice (07) ==
LOC: NEPC 07:51
DX: F10.129 Alcohol abuse with intoxication, unspecified (principal); R20.0 Anesthesia of skin; I10 Essential (primary) hypertension; I25.10 Atherosclerotic heart disease of native coronary artery without angina pectoris; I25.2 Old myocardial infarction; I67.9 Cerebrovascular disease, unspecified; E78.00 Pure hypercholesterolemia, unspecified; J44.9 Chronic obstructive pulmonary disease, unspecified; K74.60 Unspecified cirrhosis of liver; F32.9 Major depressive disorder, single episode, unspecified; F17.290 Nicotine dependence, other tobacco product, uncomplicated; Y90.8 Blood alcohol level of 240 mg/100 ml or more; Z86.73 Personal history of transient ischemic attack (TIA), and cerebral infarction without residual deficits; Z95.5 Presence of coronary angioplasty implant and graft; Z88.5 Allergy status to narcotic agent
CPT/HCPCS: 70450; 73080; 80048; 80307; 85025; 85610; 85730; 96360; 99285; J7030

== ENCOUNTER 2017-07-15 12:40 | Emergency (ER) | payer OTHER ==
[~2017-07-15] VITALS: Ht 167.6 cm; Wt 69.0 kg
[2017-07-15 15:50] VITALS: BP 102/80; PULSE 86; RESP 20; TEMP 98; O2SAT 96
--- NOTE | 2017-07-15 20:16 | PD ---
HPI Chief Complaint: Alcohol/Drug Intoxication Time Seen by Provider: 20:12 Travel History International Travel<30 days: No Contact w/Intl Traveler<30days: No Traveled to known affect area: No History of Present Illness HPI Patient is a 56-year-old male that presented to the emergency department for evaluation of alcohol intoxication. Patient was found laying on the side walk. He was brought in under [employer] act. Patient admits to drinking alcohol all morning. He has no physical complaints at this time. Symptom onset seems exacerbated by alcohol intake. Symptom severity is moderate. PFSH Past Medical History Arthritis: Yes Anxiety: Yes Depression: Yes Cardiac Catheterization: Yes Cardiovascular Problems: Yes High Cholesterol: Yes Chemotherapy: No Congestive Heart Failure: No Cirrhosis: Yes COPD: Yes Cerebrovascular Accident: Yes Coronary Artery Disease: Yes Diabetes: No Diminished Hearing: No Endocrine: No Gastrointestinal Disorders: Yes Genitourinary: No Heparin Induced Thrombocytopen: No Hypertension: Yes Immune Disorder: No Implanted Vascular Access Dvce: Yes Reproductive: No Respiratory: Yes Immunizations Current: No Myocardial Infarction: Yes Seizures: Yes Past Surgical History Body Medical Devices: PINS IN HAND, PIN AND PLATES IN HIP PER PATIENT Cardiac Surgery: Yes Coronary Stent: Yes Other Surgery: Yes (lt hip, rt hand, lt hand) Social History Alcohol Use: Yes (daily/last drink@3hrs ago ) Tobacco Use: Yes (cigars) Substance Use: No Allergies-Medications (Allergen,Severity, Reaction): Coded Allergies: *MDRO Multi-Drug Resistant Organism (Verified Adverse Reaction, Unknown, ) MRSA leg wound 04/2015 MRSA PCR (nares) negative - 10/15/15 & 10/19/15 Cleared per Infection Control morphine (Unverified Adverse Reaction, Unknown, GI UPSET, 06/30/17) Reported Meds & Prescriptions Reported Meds & Active Scripts Active No Active Prescriptions or Reported Medications Review of Systems ROS Limitations: Intoxication Except as stated in HPI: all other systems reviewed are Neg Physical Exam Narrative GENERAL: Disheveled, alert male. Presenting in no acute distress, appears intoxicated. SKIN: Warm and dry. HEAD: Atraumatic. Normocephalic. EYES: Pupils equal and round. No scleral icterus. No injection or drainage. ENT: No nasal bleeding or discharge. Mucous membranes pink and moist. NECK: Trachea midline. No JVD. CARDIOVASCULAR: Regular rate and rhythm. RESPIRATORY: No accessory muscle use. Clear to auscultation. Breath sounds equal bilaterally. GASTROINTESTINAL: Abdomen soft, non-tender, nondistended. Hepatic and splenic margins not palpable. MUSCULOSKELETAL: Extremities without clubbing, cyanosis, or edema. No obvious deformities. NEUROLOGICAL: Awake and alert. No obvious cranial nerve deficits. Motor grossly within normal limits. Five out of 5 muscle strength in the arms and legs. Normal speech. PSYCHIATRIC: Appropriate mood and affect; insight and judgment normal. Data Data Last Documented VS Vital Signs Date Time Temp Pulse Resp B/P (MAP) Pulse Ox O2 Delivery O2 Flow Rate FiO2 07/15/17 15:50 98.0 86 20 102/80 (87) 96 Room Air Orders Orders Alcohol (Ethanol) (07/15/17 17:30) Labs Laboratory Tests Test 07/15/17 17:15 Ethyl Alcohol Level 354 MG/DL MDM Medical Decision Making Medical Screen Exam Complete: Yes Emergency Medical Condition: Yes Medical Record Reviewed: Yes Interpretation(s) Vital Signs Date Time Temp Pulse Resp B/P (MAP) Pulse Ox O2 Delivery O2 Flow Rate FiO2 07/15/17 15:50 98.0 86 20 102/80 (87) 96 Room Air Differential Diagnosis Intoxication versus medical clearance versus normal exam versus other Narrative Course Patient is a 56-year-old male that presented to the emergency department under [facility] act after being found publicly intoxicated. Patient's blood alcohol was 354 at 1750. Patient's vital signs are stable. He is alert. 2009 patient was assessed and appears much more sober, he is ambulating safely. Patient is able to answer questions appropriately. Patient is encouraged to avoid excessive alcohol intake, he was encouraged to follow-up with [facility]ir Garcia for rehab. He was advised to return to emergency department for any new or worsening symptoms. Patient verbalized understanding of these instructions. Patient stable for discharge. Diagnosis Primary Impression: Alcohol intoxication Qualified Codes: F10.920 - Alcohol use, unspecified with intoxication, uncomplicated Referrals: [facility] Patient Instructions: Abuse of Alcohol (ED), Alcohol Intoxication (ED), General Instructions Additional Instructions: Avoid excessive intake of alcohol Drink more water Follow-up with [facility]ir Garcia Return to emergency department for any new worsening symptoms Med/Other Pt SpecificInfo: No Change to Meds Scripts No Active Prescriptions or Reported Meds Disposition: DISCHARGE HOME Condition: Stable Griselda Alonzo Jul 15, 2017 20:16
== END 2017-07-15 20:24 | disposition home or self-care (01) ==
LOC: NEDAMB 12:40
DX: F10.920 Alcohol use, unspecified with intoxication, uncomplicated (principal); I10 Essential (primary) hypertension; I25.10 Atherosclerotic heart disease of native coronary artery without angina pectoris; I25.2 Old myocardial infarction; E78.00 Pure hypercholesterolemia, unspecified; J44.9 Chronic obstructive pulmonary disease, unspecified; K74.60 Unspecified cirrhosis of liver; F17.290 Nicotine dependence, other tobacco product, uncomplicated; M19.90 Unspecified osteoarthritis, unspecified site; Y90.8 Blood alcohol level of 240 mg/100 ml or more; F41.9 Anxiety disorder, unspecified; F32.9 Major depressive disorder, single episode, unspecified; Z86.73 Personal history of transient ischemic attack (TIA), and cerebral infarction without residual deficits; Z88.5 Allergy status to narcotic agent
CPT/HCPCS: 80307; 99283

== ENCOUNTER 2017-08-06 19:31 | Emergency (ER) | payer OTHER ==
[~2017-08-06] VITALS: Ht 167.6 cm; Wt 65.0 kg
[2017-08-06 19:46] VITALS: BP 94/60; PULSE 74; RESP 16; TEMP 98.6; O2SAT 94
--- NOTE | 2017-08-06 22:05 | PD ---
HPI Chief Complaint: Alcohol/Drug Intoxication Time Seen by Provider: 21:58 Travel History International Travel<30 days: No Contact w/Intl Traveler<30days: No Traveled to known affect area: No History of Present Illness HPI Patient comes emergency department for evaluation of left upper extremity weakness that has been going on for unclear amount of time. Patient states it has been on for 2 weeks and states it has been off for 3 weeks, then states has been on since he fractured his clavicle but is uncertain when this occurred. Patient feels like the weakness is getting worse. Denies anything making symptoms better. Denies any known other known injury. Reports associated pain with this he describes as a burning-like sensation that goes from the shoulder all the way down his arm. Patient is concerned as he is left-handed. PFSH Past Medical History Arthritis: Yes Anxiety: Yes Depression: Yes Cardiac Catheterization: Yes Cardiovascular Problems: Yes High Cholesterol: Yes Chemotherapy: No Congestive Heart Failure: No Cirrhosis: Yes COPD: Yes Cerebrovascular Accident: Yes Coronary Artery Disease: Yes Diabetes: No Diminished Hearing: No Endocrine: No Gastrointestinal Disorders: Yes Genitourinary: No Heparin Induced Thrombocytopen: No Hypertension: Yes Immune Disorder: No Implanted Vascular Access Dvce: Yes Reproductive: No Respiratory: Yes Immunizations Current: No Myocardial Infarction: Yes Seizures: Yes Tetanus Vaccination: > 5 Years Influenza Vaccination: No Past Surgical History Body Medical Devices: PINS IN HAND, PIN AND PLATES IN HIP PER PATIENT Cardiac Surgery: Yes Coronary Stent: Yes Other Surgery: Yes (lt hip, rt hand, lt hand) Family History Family Myocardial Infarction: Yes Social History Alcohol Use: Yes (daily/last drink@3hrs ago ) Tobacco Use: Yes (cigars) Substance Use: No Allergies-Medications (Allergen,Severity, Reaction): Coded Allergies: *MDRO Multi-Drug Resistant Organism (Verified Adverse Reaction, Unknown, ) MRSA leg wound 04/2015 MRSA PCR (nares) negative - 10/15/15 & 10/19/15 Cleared per Infection Control morphine (Unverified Adverse Reaction, Unknown, GI UPSET, 08/06/17) Reported Meds & Prescriptions Reported Meds & Active Scripts Active No Active Prescriptions or Reported Medications Review of Systems ROS Limitations: Intoxication Except as stated in HPI: all other systems reviewed are Neg Physical Exam Exam Limitations: Intoxication Narrative GENERAL: Well-developed, well nourished, in no acute distress, and non-ill appearing. Alcohol noted on breath. SKIN: Focused skin assessment warm and dry. HEAD: Atraumatic. Normocephalic. EYES: Pupils equal and round. EOMI. No scleral icterus. No injection or drainage. ENT: No nasal bleeding or discharge. Mucous membranes pink and moist. NECK: Trachea midline. Supple. No nuclear rigidity. CARDIOVASCULAR: Regular rate and rhythm. No murmur appreciated. Radial pulses 2+, intact, and equal bilaterally. Capillary refill less than 2 seconds. RESPIRATORY: No accessory muscle use. No respiratory distress. Decreased breath sounds throughout. Breath sounds equal bilaterally. MUSCULOSKELETAL: No obvious deformities. No clubbing. No cyanosis. No edema. Decreased range of motion left upper extremity secondary to pain. Shoulder: Sensation equal BL deltoid muscles. Pulses equal BL distal to injury. Capillary refill less than 2 seconds distal to injury and equal BL. Decreased range of motion distal left upper extremity and strength compared to right. Patient reports a decreased sensation in his fingers on the left compared to the right. Flexion and extension of thumb equal BL. [place] strength decreased on left compared to right. NEUROLOGICAL: Awake and alert. No obvious cranial nerve deficits. Motor grossly within normal limits. Normal speech. PSYCHIATRIC: Appropriate mood and affect; insight and judgment normal. Data Data Last Documented VS Vital Signs Date Time Temp Pulse Resp B/P (MAP) Pulse Ox O2 Delivery O2 Flow Rate FiO2 08/06/17 19:46 98.6 74 16 94/60 (71) [address] Brain W/O Iv Contrast(Rout) (08/06/17 ) Ct Cerv Spine W/O Contrast (08/06/17 ) Shoulder, Complete (>2vws) (08/06/17 ) [facility] Medical Decision Making Medical Screen Exam Complete: Yes Emergency Medical Condition: Yes Differential Diagnosis CVA, radiculopathy, fracture, mass, Monday night palsy Narrative Course Patient was seen and examined. Initial radiological studies were ordered. Patient was signed out to Dr. Noriega at the end of my shift. Please see her documentation for final diagnosis and disposition. Scripts No Active Prescriptions or Reported Meds Vineet Abel Aug 06, 2017 22:05
--- NOTE | 2017-08-06 22:58 | RADRPT ---
EXAM DATE/TIME: 08/06/2017 22:43 [facility] COMPARISON: SHOULDER LEFT COMPLETE (>2VWS), March 16, 2017, 11:34. INDICATIONS : Left arm numbness, history of falls and left clavicle fracture. MEDICAL HISTORY : Cardiovascular disease. Cerebrovascular disease. Chronic obstructive pulmonary disease. Hyperten raheem ETOH abuse SURGICAL HISTORY : None. ENCOUNTER: Initial ACUITY: 1 day PAIN SCORE: 1/10 LOCATION: Left arm FINDINGS: There is a fracture of the left mid clavicle, displaced with prominent callus formation seen. The gle nohumeral joint is approximated. CONCLUSION: There is a left midclavicular fracture with prominent callus formation noted. Alberto Bronson MD on August 06, 2017 at 22:55 Board Certified Radiologist. This report was verified electronically.
--- NOTE | 2017-08-06 23:17 | RADRPT ---
EXAM DATE/TIME: 08/06/2017 22:54 [facility] COMPARISON: CT BRAIN W/O CONTRAST, June 30, 2017, 8:22. INDICATIONS : Weakness RADIATION DOSE: 39.34 CTDIvol (mGy) MEDICAL HISTORY : Cardiovascular disease. Chronic obstructive pulmonary disease. Cerebrovascular disease. SURGICAL HISTORY : Coronary artery stent. ENCOUNTER: Initial ACUITY: 1 day PAIN SCALE: 0/10 LOCATION: cranial TECHNIQUE: Multiple contiguous axial images were obtained of the head. Using automated exposure control and adj ustment of the mA and/or kV according to patient size, radiation dose was kept as low as reasonably a chievable to obtain optimal diagnostic quality images. DICOM format image data is available electro nically for review and comparison. FINDINGS: CEREBRUM: The ventricles are normal for age. No evidence of midline shift, mass lesion, hemorrhage or acute in farction. No extra-axial fluid collections are seen. POSTERIOR FOSSA: The cerebellum and brainstem are intact. The 4th ventricle is midline. The cerebellopontine angle i s unremarkable. EXTRACRANIAL: The visualized portion of the orbits is intact. SKULL: The calvaria is intact. No evidence of skull fracture. CONCLUSION: Normal examination. Cornelio Gavin MD on August 06, 2017 at 23:13 Board Certified Radiologist. This report was verified electronically.
--- NOTE | 2017-08-06 23:18 | RADRPT ---
EXAM DATE/TIME: 08/06/2017 22:54 [facility] COMPARISON: No previous studies available for comparison. INDICATIONS : Weakness and left shoulder pain RADIATION DOSE: 20.48 CTDIvol (mGy) MEDICAL HISTORY : Cardiovascular disease. Chronic obstructive pulmonary disease. Cerebrovascular disease. SURGICAL HISTORY : Coronary artery stent. ENCOUNTER: Initial ACUITY: 1 day PAIN SCALE: 5/10 LOCATION: Left shoulder TECHNIQUE: Volumetric scanning of the cervical spine was performed. Multiplanar reconstructions in the sagittal, coronal and oblique axial planes were performed. Using automated exposure control and adjustment o f the mA and/or kV according to patient size, radiation dose was kept as low as reasonably achievable to obtain optimal diagnostic quality images. DICOM format image data is available electronically f or review and comparison. FINDINGS: There is mild right convex rotatory scoliosis. No evidence of spondylolisthesis.. There is no evidenc e of cervical spine fracture. No bony canal or foraminal stenosis is identified. There is no evidence of paraspinal mass or hematoma. CONCLUSION: No acute bony process in the cervical spine. Cornelio Gavin MD on August 06, 2017 at 23:15 Board Certified Radiologist. This report was verified electronically.
[2017-08-07 00:02] VITALS: BP 93/63; PULSE 84; RESP 16; O2SAT 96
--- NOTE | 2017-08-07 03:13 | PD ---
Data Data Last Documented VS Vital Signs Date Time Temp Pulse Resp B/P (MAP) Pulse Ox O2 Delivery O2 Flow Rate FiO2 08/07/17 00:02 84 16 93/63 (73) 96 08/06/17 19:[address] Brain W/O Iv Contrast(Rout) (08/06/17 ) Ct Cerv Spine W/O Contrast (08/06/17 ) Shoulder, Complete (>2vws) (08/06/17 ) MDM Supervised Visit with SERG: Yes Narrative Course 56-year-old man presents with left upper extremity weakness, ongoing for months. States it started after he broke his clavicle. Possibly a brachial plexus injury. It does not seem like a Monday night palsy. On exam he has pretty weak median nerve strength and ulnar nerve strength, he is very weak and thumb and pinky opposition, as well as finger abduction internal. He stronger and extension at the fingers and at the wrist. No obvious sensory deficits although exam is still but limited due to intoxication. Reflexes are diminished symmetrically in the biceps and brachioradialis. Think this is ongoing and somewhat chronic, he states his overall worsening. I think he needs to follow-up with a specialist as an outpatient for further evaluation. He appears to be homeless and intoxicated. Prognosis is overall poor. Diagnosis Primary Impression: Peripheral neuropathy Additional Impression: Alcohol intoxication Additional Instruction: Follow-up with your primary physician for further evaluation by specialist. Return to the emergency department for any new or worsening symptoms. Med/Other Pt SpecificInfo: No Change to Meds Scripts No Active Prescriptions or Reported Meds Disposition: 01 DISCHARGE HOME Condition: Stable Saúl Roberson MD Aug 07, 2017 03:13
== END 2017-08-07 06:40 | disposition home or self-care (01) ==
LOC: NEDAMB 19:31 → NEPC 08-07 06:40
DX: G62.9 Polyneuropathy, unspecified (principal); F10.129 Alcohol abuse with intoxication, unspecified; I10 Essential (primary) hypertension; I25.10 Atherosclerotic heart disease of native coronary artery without angina pectoris; I25.2 Old myocardial infarction; E78.00 Pure hypercholesterolemia, unspecified; K74.60 Unspecified cirrhosis of liver; J44.9 Chronic obstructive pulmonary disease, unspecified; F32.9 Major depressive disorder, single episode, unspecified; F41.9 Anxiety disorder, unspecified; F17.290 Nicotine dependence, other tobacco product, uncomplicated; Z86.73 Personal history of transient ischemic attack (TIA), and cerebral infarction without residual deficits; Z95.5 Presence of coronary angioplasty implant and graft; Z88.5 Allergy status to narcotic agent
CPT/HCPCS: 70450; 72125; 73030; 99284

== ENCOUNTER 2017-08-11 16:46 | Emergency (ER) | payer OTHER ==
[2017-08-11 18:13] VITALS: BP 116/82; PULSE 75; RESP 18; TEMP 98.5; O2SAT 95
--- NOTE | 2017-08-11 22:14 | PD ---
HPI Chief Complaint: Alcohol/Drug Intoxication Time Seen by Provider: 21:29 Travel History International Travel<30 days: No Contact w/Intl Traveler<30days: No Traveled to known affect area: No History of Present Illness HPI 56-year-old male that presents to the ED for evaluation of alcohol intoxication and head injury. Patient reports that he fell and hit his head today. He cannot really tell me much because of his intoxication. He has a history of alcohol abuse and has been here multiple times in the past for alcohol-related events. Denies any blood thinner use. No other medical issues. No urinary or bowel movement issues. Her neck or back pain. Allergies to morphine and MRSA. History is limited because of the patient's intoxication. He does appear to have some bruising on his forehead. PFSH Past Medical History Arthritis: Yes Anxiety: Yes Depression: Yes Cardiac Catheterization: Yes Cardiovascular Problems: Yes High Cholesterol: Yes Chemotherapy: No Congestive Heart Failure: No Cirrhosis: Yes COPD: Yes Cerebrovascular Accident: Yes Coronary Artery Disease: Yes Diabetes: No Diminished Hearing: No Endocrine: No Gastrointestinal Disorders: Yes Genitourinary: No Heparin Induced Thrombocytopen: No Hypertension: Yes Immune Disorder: No Implanted Vascular Access Dvce: Yes Reproductive: No Respiratory: Yes Immunizations Current: No Myocardial Infarction: Yes Seizures: Yes Tetanus Vaccination: > 5 Years Influenza Vaccination: No Past Surgical History Body Medical Devices: PINS IN HAND, PIN AND PLATES IN HIP PER PATIENT Cardiac Surgery: Yes Coronary Stent: Yes Other Surgery: Yes (lt hip, rt hand, lt hand) Family History Family Myocardial Infarction: Yes Social History Alcohol Use: Yes (daily/last drink@3hrs ago ) Tobacco Use: Yes (cigars) Substance Use: No Allergies-Medications (Allergen,Severity, Reaction): Coded Allergies: *MDRO Multi-Drug Resistant Organism (Verified Adverse Reaction, Unknown, ) MRSA leg wound 04/2015 MRSA PCR (nares) negative - 10/15/15 & 10/19/15 Cleared per Infection Control morphine (Unverified Adverse Reaction, Unknown, GI UPSET, 08/11/17) Reported Meds & Prescriptions Reported Meds & Active Scripts Active No Active Prescriptions or Reported Medications Review of Systems ROS Limitations: Intoxication Except as stated in HPI: all other systems reviewed are Neg Physical Exam Exam Limitations: Intoxication Narrative GENERAL: SKIN: Warm and dry. HEAD: Atraumatic. Normocephalic. EYES: Pupils equal and round 4mms reactive to light and accomodatin. No scleral icterus. No injection or drainage. ENT: No nasal bleeding or discharge. Mucous membranes pink and moist. Tongue is midline. No uvula deviation. NECK: Trachea midline. No JVD. CARDIOVASCULAR: Regular rate and rhythm. No murmurs, S3, S4. RESPIRATORY: No accessory muscle use. Clear to auscultation. Breath sounds equal bilaterally. GASTROINTESTINAL: Abdomen soft, non-tender, nondistended. Hepatic and splenic margins not palpable. MUSCULOSKELETAL: Extremities without clubbing, cyanosis, or edema. No obvious deformities. Full range of motion of the upper and lower extremities bilaterally. 2+ pulses bilaterally. No lumbar, thoracic, cervical spine tenderness to palpation. NEUROLOGICAL: Awake and alert. No obvious cranial nerve deficits. Motor grossly within normal limits. Five out of 5 muscle strength in the arms and legs. Normal speech. PSYCHIATRIC: Intoxicated mood and affect; insight and judgment normal. Data Data Last Documented VS Vital Signs Date Time Temp Pulse Resp B/P (MAP) Pulse Ox O2 Delivery O2 Flow Rate FiO2 08/11/17 18:13 98.5 75 18 116/82 (93) [address] Brain W/O Iv Contrast(Rout) (08/11/17 ) MDM Medical Decision Making Medical Screen Exam Complete: Yes Emergency Medical Condition: Yes Medical Record Reviewed: Yes Interpretation(s) CT head negative Differential Diagnosis Alcohol abuse versus alcohol intoxication versus head injury versus fall Narrative Course 56-year-old male that presents to the ED for evaluation of head injury and alcohol. Patient was properly examined and was found to have signs and symptoms consistent appears to alcohol intoxication. CT of the head was ordered. CT of the head was negative for acute disease. Patient was reassured. Patient will be allowed to sleep off his intoxication until medically sober. Follow-up with PCP. See ED if worsening symptoms. Diagnosis Primary Impression: Alcohol intoxication Qualified Codes: F10.920 - Alcohol use, unspecified with intoxication, uncomplicated Additional Impression: Head injury Qualified Codes: S09.90XA - Unspecified injury of head, initial encounter Patient Instructions: General Instructions Additional Instructions: Follow up with PCP. See ED if worsening symptoms. Stop drinking alcohol Med/Other Pt SpecificInfo: No Change to Meds Scripts No Active Prescriptions or Reported Meds Disposition: DISCHARGE HOME Condition: Stable Carmelo Trevino Aug 11, 2017 22:14
--- NOTE | 2017-08-11 22:39 | RADRPT ---
EXAM DATE/TIME: 08/11/2017 22:03 [facility] COMPARISON: CT BRAIN W/O CONTRAST, August 06, 2017, 22:54. INDICATIONS : Altered mental status. RADIATION DOSE: 39.91 CTDIvol (mGy) MEDICAL HISTORY : Non-responsive. SURGICAL HISTORY : Non-responsive. ENCOUNTER: Initial ACUITY: 1 day PAIN SCALE: Non-responsive LOCATION: cranial TECHNIQUE: Multiple contiguous axial images were obtained of the head. Using automated exposure control and adj ustment of the mA and/or kV according to patient size, radiation dose was kept as low as reasonably a chievable to obtain optimal diagnostic quality images. DICOM format image data is available electro nically for review and comparison. FINDINGS: CEREBRUM: The ventricles are normal for age. No evidence of midline shift, mass lesion, hemorrhage or acute in farction. No extra-axial fluid collections are seen. POSTERIOR FOSSA: The cerebellum and brainstem are intact. The 4th ventricle is midline. The cerebellopontine angle i s unremarkable. EXTRACRANIAL: The visualized portion of the orbits is intact. SKULL: The calvaria is intact. No evidence of skull fracture. CONCLUSION: Negative for an acute process Martinez Clemens MD FACR on August 11, 2017 at 22:31 Board Certified Radiologist. This report was verified electronically.
== END 2017-08-11 23:24 | disposition home or self-care (01) ==
LOC: NEDAMB 16:46
DX: F10.920 Alcohol use, unspecified with intoxication, uncomplicated (principal); S09.90XA Unspecified injury of head, initial encounter; S00.83XA Contusion of other part of head, initial encounter; I10 Essential (primary) hypertension; J44.9 Chronic obstructive pulmonary disease, unspecified; W19.XXXA Unspecified fall, initial encounter; Z88.5 Allergy status to narcotic agent; Z72.0 Tobacco use
CPT/HCPCS: 70450; 99283

== ENCOUNTER 2017-08-21 10:00 | Emergency (ER) | payer OTHER ==
[~2017-08-21] VITALS: Ht 162.6 cm; Wt 65.0 kg
[2017-08-21 10:06] VITALS: BP 131/73; PULSE 64; RESP 17; O2SAT 97
--- NOTE | 2017-08-21 10:14 | PD ---
HPI Chief Complaint: Alcohol intoxication Time Seen by Provider: 10:04 Travel History International Travel<30 days: No Contact w/Intl Traveler<30days: No Traveled to known affect area: No History of Present Illness HPI The patient is a 56-year-old male who is well-known to the emergency department who presents to the emergency department via EMS for alcohol intoxication. The patient was lying on the ground, behind a shopping center, when he was found by police. The patient was noted to be intoxicated and unable to ambulate. Therefore, the patient was placed under [place] act. The patient was noted to have hematomas to the right frontal forehead, ecchymosis to left frontal forehead, and appear to be intoxicated. Upon arrival the patient does complain of alcohol intoxication and is requesting to be "[place]order[place] act ". He denies any suicidal or homicidal ideation, he does admit to drinking alcohol. He denies any significant headache, neck pain, chest pain, shortness of breath, nausea, vomiting, or abdominal pain. However, the patient is a somewhat poor historian who appears intoxicated. PFSH Past Medical History Arthritis: Yes Anxiety: Yes Depression: Yes Cardiac Catheterization: Yes Cardiovascular Problems: Yes High Cholesterol: Yes Chemotherapy: No Congestive Heart Failure: No Cirrhosis: Yes COPD: Yes Cerebrovascular Accident: Yes Coronary Artery Disease: Yes Diabetes: No Diminished Hearing: No Endocrine: No Gastrointestinal Disorders: Yes Genitourinary: No Heparin Induced Thrombocytopen: No Hypertension: Yes Immune Disorder: No Implanted Vascular Access Dvce: Yes Reproductive: No Respiratory: Yes Immunizations Current: No Myocardial Infarction: Yes Seizures: Yes Past Surgical History Body Medical Devices: PINS IN HAND, PIN AND PLATES IN HIP PER PATIENT Cardiac Surgery: Yes Coronary Stent: Yes Other Surgery: Yes (lt hip, rt hand, lt hand) Social History Alcohol Use: Yes (daily/last drink@3hrs ago ) Tobacco Use: Yes (cigars) Substance Use: No Allergies-Medications (Allergen,Severity, Reaction): Coded Allergies: *MDRO Multi-Drug Resistant Organism (Verified Adverse Reaction, Unknown, ) MRSA leg wound 04/2015 MRSA PCR (nares) negative - 10/15/15 & 10/19/15 Cleared per Infection Control morphine (Unverified Adverse Reaction, Unknown, GI UPSET, 08/11/17) Reported Meds & Prescriptions Reported Meds & Active Scripts Active No Active Prescriptions or Reported Medications Review of Systems Except as stated in HPI: all other systems reviewed are Neg HENT: No: Headaches, Neck Pain Cardiovascular: No: Chest Pain or Discomfort Respiratory: No: Shortness of Breath Gastrointestinal: No: Nausea, Vomiting, Abdominal Pain Psychiatric: Positive: Substance Abuse, No: Suicidal Ideations, Homicidal Ideation Physical Exam Narrative GENERAL: Awake, alert, pleasant 56-year-old male who appears his stated age and is in no acute respiratory distress. Patient is lying in wet clothes. Appears intoxicated. SKIN: Hematoma to the right frontal forehead with abrasion. Old appearing ecchymosis to left frontal forehead. HEAD: Hematoma of the right frontal forehead with abrasion and ecchymosis to left frontal forehead. EYES: Pupils equal and round. 3 mm bilateral and reactive. ENT: No nasal bleeding or discharge. Mucous membranes pink and moist. NECK: Trachea midline. No JVD. No cervical tenderness. CARDIOVASCULAR: Regular rate and rhythm. No murmur appreciated. RESPIRATORY: No accessory muscle use. Clear to auscultation. Breath sounds equal bilaterally. GASTROINTESTINAL: Abdomen soft, non-tender, nondistended. No rebound tenderness. MUSCULOSKELETAL: Abrasion noted over the anterior aspect the left knee. Patient is able to move all 4 extremities. Back: No tenderness over the thoracic or lumbar vertebrae. NEUROLOGICAL: Awake and alert. No obvious cranial nerve deficits. Motor grossly within normal limits. Normal speech. Oriented to person place. PSYCHIATRIC: Appears intoxicated. Data Data Last Documented VS Vital Signs Date Time Temp Pulse Resp B/P (MAP) Pulse Ox O2 Delivery O2 Flow Rate FiO2 08/21/17 10:31 96.3 08/21/17 10:20 60 18 95 Room Air Orders Orders Ct Brain W/O Iv Contrast(Rout) (08/21/17 ) Alcohol (Ethanol) (08/21/17 10:10) Basic Metabolic Panel (Bmp) (08/21/17 10:10) Labs Laboratory Tests Test 08/21/17 10:30 Blood Urea Nitrogen 9 MG/DL Creatinine 0.58 MG/DL Random Glucose 98 MG/DL Calcium Level 8.1 MG/DL Sodium Level 137 MEQ/L Potassium Level 4.3 MEQ/L Chloride Level 103 MEQ/L Carbon Dioxide Level 23.3 MEQ/L Anion Gap 11 MEQ/L Estimat Glomerular Filtration Rate 145 ML/MIN Ethyl Alcohol Level 431 MG/DL [facility] Medical Decision Making Medical Screen Exam Complete: Yes Emergency Medical Condition: Yes Medical Record Reviewed: Yes Interpretation(s) CT of the brain reveals cephalic hematoma, otherwise unremarkable. Laboratory Tests Test 08/21/17 10:30 Blood Urea Nitrogen 9 MG/DL Creatinine 0.58 MG/DL Random Glucose 98 MG/DL Calcium Level 8.1 MG/DL Sodium Level 137 MEQ/L Potassium Level 4.3 MEQ/L Chloride Level 103 MEQ/L Carbon Dioxide Level 23.3 MEQ/L Anion Gap 11 MEQ/L Estimat Glomerular Filtration Rate 145 ML/MIN Ethyl Alcohol Level 431 MG/DL Differential Diagnosis Differential diagnosis includes alcohol intoxication, alcohol abuse, alcohol dependence, closed head injury, intracranial hemorrhage, skull fracture, abrasion, hematoma, contusion, hyponatremia. Narrative Course CT of the brain was obtained. BMP and alcohol level were sent to lab. Sodium is unremarkable. Alcohol level is elevated at 453. The patient was monitored in the emergency department. Diagnosis Primary Impression: Alcohol abuse Additional Impressions: Alcohol dependence with intoxication Qualified Codes: F10.220 - Alcohol dependence with intoxication, uncomplicated Closed head injury Qualified Codes: S09.90XA - Unspecified injury of head, initial encounter Scripts No Active Prescriptions or Reported Meds Condition: Stable Arnie Abarca MD Aug 21, 2017 10:14
[2017-08-21 10:20] VITALS: BP 131/73; PULSE 60; RESP 18; O2SAT 95
[2017-08-21 10:31] VITALS: TEMP 96.3
--- NOTE | 2017-08-21 10:54 | RADRPT ---
EXAM DATE/TIME: 08/21/2017 10:37 [facility] COMPARISON: CT BRAIN W/O CONTRAST, August 11, 2017, 22:03. INDICATIONS : Altered mental status, hematoma right forehead RADIATION DOSE: 40.78 CTDIvol (mGy) MEDICAL HISTORY : Seizures. Hypertension. Cardiovascular disease SURGICAL HISTORY : None. ENCOUNTER: Initial ACUITY: 1 day PAIN SCALE: Non-responsive LOCATION: cranial TECHNIQUE: Multiple contiguous axial images were obtained of the head. Using automated exposure control and adj ustment of the mA and/or kV according to patient size, radiation dose was kept as low as reasonably a chievable to obtain optimal diagnostic quality images. DICOM format image data is available electro nically for review and comparison. FINDINGS: CEREBRUM: The ventricles are normal for age. No evidence of midline shift, mass lesion, hemorrhage or acute in farction. No extra-axial fluid collections are seen. POSTERIOR FOSSA: The cerebellum and brainstem are intact. The 4th ventricle is midline. The cerebellopontine angle i s unremarkable. EXTRACRANIAL: The visualized portion of the orbits is intact. SKULL: The calvaria is intact. Cephalohematoma right fundal bone. No evidence of skull fracture. CONCLUSION: Cephalohematoma otherwise negative Martinez Clemens MD FACR on August 21, 2017 at 10:51 Board Certified Radiologist. This report was verified electronically.
[2017-08-21 10:58] LABS: BICARBONATE 23.3 MEQ/L (21.0-32.0); CALCIUM 8.1 MG/DL (8.5-10.1); CREATININE 0.58 MG/DL (0.60-1.30)
[2017-08-21 14:51] VITALS: BP 95/54; PULSE 76; RESP 16; O2SAT 98
[2017-08-21 17:37] VITALS: BP 113/66; PULSE 100; RESP 18; TEMP 100; O2SAT 97
== END 2017-08-21 21:56 | disposition home or self-care (01) ==
LOC: NEPD 10:00 → NEDAMB 21:56
DX: F10.220 Alcohol dependence with intoxication, uncomplicated (principal); S09.90XA Unspecified injury of head, initial encounter; F41.8 Other specified anxiety disorders; E78.00 Pure hypercholesterolemia, unspecified; K74.60 Unspecified cirrhosis of liver; J44.9 Chronic obstructive pulmonary disease, unspecified; I25.10 Atherosclerotic heart disease of native coronary artery without angina pectoris; I10 Essential (primary) hypertension; I25.2 Old myocardial infarction; R56.9 Unspecified convulsions; X58.XXXA Exposure to other specified factors, initial encounter; Y90.8 Blood alcohol level of 240 mg/100 ml or more; Z88.5 Allergy status to narcotic agent
CPT/HCPCS: 70450; 80048; 80307; 99284